=== PATIENT | female | born 1985 | race Caucasian/White ===

== ENCOUNTER 2016-07-14 11:38 | Emergency (ER) | payer MEDICARE, MEDICAID ==
[~2016-07-14] VITALS: Ht 167.6 cm; Wt 141.5 kg
[2016-07-14 12:13] VITALS: BP 145/105; PULSE 93; RESP 20; TEMP 98.6
[2016-07-14] MEDS ORDERED: CYCL5TAB PO (12:57)
[2016-07-14] MEDS ORDERED: CYAN1KIT2 IM (12:57)
[2016-07-14] MEDS ORDERED: LEVO.1 PO (12:57)
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
[2016-07-14] MEDS ORDERED: ORPHENADRINE INJ 60 MG/2 ML AMP IM ONE (14:00)
[2016-07-14] MEDS ORDERED: ACETAMINOPHEN 325 MG TAB PO ONE (14:00)
[2016-07-14] MEDS ORDERED: CYCL1TAB29 PO (14:08)
[2016-07-14 14:30] VITALS: BP 133/79; PULSE 84; RESP 18; O2SAT 99
--- NOTE | 2016-07-14 14:34 | RADHPO ---
EXAM DATE/TIME: 07/14/2016 14:05 [facility] COMPARISON: No previous studies available for comparison. INDICATIONS : Upper back pain . MEDICAL HISTORY : None. SURGICAL HISTORY : None. ENCOUNTER: Initial ACUITY: 3 days PAIN SCORE: 10/10 LOCATION: middle thoracic spine FINDINGS: There is normal alignment of the thoracic vertebral bodies. Vertebral body height is maintained. No evidence of fracture or subluxation. Pedicles are intact at all levels. The paravertebral reflecti ons are not thickened. CONCLUSION: No acute disease. Joshua Iyer MD on July 14, 2016 at 14:33 Board Certified Radiologist. This report was verified electronically.
[2016-07-23] MEDS ORDERED: ESZO3TAB4 PO (14:38)
[2016-07-23] MEDS ORDERED: TRAZ50TA12 PO (14:40)
[2016-08-20] MEDS ORDERED: LEVA500T PO (14:27)
[2016-08-20] MEDS ORDERED: ZOFR4TAB PO (14:27)
[2016-08-20] MEDS ORDERED: PERC5TAB12 PO (14:28)
[2016-09-17] MEDS ORDERED: ZOFR4TAB PO (14:39)
[2016-09-17] MEDS ORDERED: PERC5TAB12 PO (14:39)
[2016-11-19] MEDS ORDERED: ALLO300T2 PO (15:05)
[2016-11-19] MEDS ORDERED: PERC10TA27 PO (15:09)
[2016-11-19] MEDS ORDERED: ZOFR4SOL PO (15:09)
== END 2016-07-14 15:10 | disposition home or self-care (01) ==
LOC: PHEFT 11:38
DX: S23.3XXA Sprain of ligaments of thoracic spine, initial encounter (principal); X58.XXXA Exposure to other specified factors, initial encounter
CPT/HCPCS: 72072; 84703; 96372; 99283; J2360

== ENCOUNTER → 2016-08-29 | Outpatient (CLI) | payer MEDICARE, MEDICAID ==
[~2016-08-29] MED LIST: ALLO300T2 PO; BUSP5TAB PO; CYAN1KIT2 IM; CYCL1TAB29 PO; CYCL5TAB PO; DOXY1CAP91; LEVA500T PO; LEVO.1 PO; PERC10TA27 PO; PERC5TAB12 PO; PROC10TA PO; PROM25TA5 PO; TAMS5CAP PO; TRAZ50TA12 PO; ZOFR4SOL PO; ZOFR4TAB PO; ZOFR4TAB3 SL
--- NOTE | 2016-08-29 15:18 | RADRPT ---
EXAM DATE/TIME: 08/29/2016 14:07 [facility] COMPARISON: No previous studies available for comparison. INDICATIONS : History of right side ureteral reflux and nephrolithiasis. DOSE: 1.0 mCi Tc99m Sulfur Colloid via urinary catheter VOLUME: A total of 750 cc of saline was instilled into the bladder before onset of voiding. MEDICAL HISTORY : Crohn's disease. Hypothyroid SURGICAL HISTORY : Appendectomy. Cholecystectomy. Lithiotripsy. ENCOUNTER: Initial ACUITY: 1 day PAIN SCALE: 6/10 LOCATION: Right lower quadrant TECHNIQUE: The urinary bladder was catheterized. Radiotracer was placed into the bladder through the catheter. Dynamic continuous rapid frame rate acquisition was performed during instillation of saline into the bladder and during voiding. A static posterior planar image of the kidneys was performed postvoid. FINDINGS: REFLUX: No episodes of vesicoureteral reflux are seen on either side during filling or emptying of the bladde r. POST VOID: No activity is seen in the region of the kidneys on the postvoid image. CONCLUSION: 1. Negative examination. Ilya Sorenson MD on August 29, 2016 at 15:15 Board Certified Radiologist. This report was verified electronically.
== END ==
LOC: HRAD 13:11
PROVIDERS: ATTEND Urology
DX: N13.70 Vesicoureteral-reflux, unspecified (principal)
CPT/HCPCS: 78740; A9541

== ENCOUNTER 2016-11-02 21:15 | Emergency (ER) | payer MEDICARE, MEDICAID ==
[~2016-11-02] VITALS: Ht 167.6 cm; Wt 138.4 kg
[~2016-11-02 21:15] MED LIST changes: -ALLO300T2 PO; -BUSP5TAB PO; -DOXY1CAP91; -LEVA500T PO; -PERC10TA27 PO; -PROC10TA PO; -PROM25TA5 PO; -TAMS5CAP PO; -ZOFR4SOL PO; -ZOFR4TAB3 SL
[2016-11-02 21:48] VITALS: BP 148/106; PULSE 96; RESP 12; TEMP 98.6
--- NOTE | 2016-11-02 22:07 | PD ---
HPI Chief Complaint: Flank/Kidney Pain Time Seen by Provider: 21:58 Travel History International Travel<30 days: No Contact w/Intl Traveler<30days: No Traveled to known affect area: No History of Present Illness HPI This 30-year-old female is complaining of right flank and right-sided abdominal pain. She has a history of kidney stones and feels that this is probably a kidney stone. She's been having pain for several days but seems to be getting worse. She has had some nausea. She has a history of medullary sponge kidney and gets frequent kidney stones. She has incomplete bladder emptying and self catheter himself. He has history of UTIs. PFSH Past Medical History Autoimmune Disease: Yes (Celiac, TMJ) Kidney Stones: Yes Thyroid Disease: Yes (Hypo-) Past Surgical History Appendectomy: Yes Cholecystectomy: Yes Oral Surgery: Yes ([place] teeth ) Social History Alcohol Use: Yes (Occ.) Tobacco Use: No Substance Use: No Allergies-Medications (Allergen,Severity, Reaction): Coded Allergies: Ambien (Verified Allergy, Unknown, VOMITING, 09/17/16) Imitrex (Verified Allergy, Unknown, RESP, 09/17/16) Lortab (Verified Allergy, Unknown, HIVES, 09/17/16) Sulfa (Verified Allergy, Unknown, VOMITING, 09/17/16) Reported Meds & Prescriptions Reported Meds & Active Scripts Active Percocet (Oxycodone-Acetaminophen) 5-325 mg Tab 1-2 Tab PO Q6H PRN Zofran (Ondansetron HCl) 4 Mg Tab 4 Mg PO Q6HR PRN Flexeril (Cyclobenzaprine HCl) 10 Mg Tab 10 Mg PO TID PRN Reported Trazodone (Trazodone HCl) 50 Mg Tab 50 Mg PO HS B-12 Compliance Inj (Cyanocobalamin) 1,000 Mcg/Ml Kit 1,000 Mcg IM Q30D Synthroid (Levothyroxine Sodium) 100 Mcg Tab 100 Mcg PO TID Review of Systems General / Constitutional: No: Fever, Chills Eyes: No: Diploplia HENT: No: Headaches Cardiovascular: No: Chest Pain or Discomfort Respiratory: No: Cough, Shortness of Breath Gastrointestinal: Positive: Nausea Genitourinary: Positive: Hematuria, Flank Pain Skin: No Rash, No Itching Neurologic: No: Weakness, Dizziness Endocrine: No: Heat Intolerance Hematologic/Lymphatic: No: Easy Bruising Physical Exam Narrative GENERAL: Well-developed female SKIN: Focused skin assessment warm/dry. HEAD: Atraumatic. Normocephalic. EYES: Pupils equal and round. No scleral icterus. No injection or drainage. ENT: No nasal bleeding or discharge. Mucous membranes pink and moist. NECK: Trachea midline. No JVD. CARDIOVASCULAR: Regular rate and rhythm. No murmur appreciated. RESPIRATORY: No accessory muscle use. Clear to auscultation. Breath sounds equal bilaterally. GASTROINTESTINAL: Abdomen soft, non-tender, nondistended. Hepatic and splenic margins not palpable. There is right CVA tenderness MUSCULOSKELETAL: No obvious deformities. No clubbing. No cyanosis. No edema. NEUROLOGICAL: Awake and alert. No obvious cranial nerve deficits. Motor grossly within normal limits. Normal speech. PSYCHIATRIC: Appropriate mood and affect; insight and judgment normal. Data Data Last Documented VS Vital Signs Date Time Temp Pulse Resp B/P Pulse Ox O2 Delivery O2 Flow Rate FiO2 11/02/16 23:00 16 11/02/16 21:59 96 11/02/16 21:48 98.6 148/106 Orders Complete Blood Count With Diff (11/02/16 22:03) Basic Metabolic Panel (Bmp) (11/02/16 22:03) Urinalysis - C+S If Indicated (11/02/16 22:03) Sodium Chlor 0.9% 1000 Ml Inj (Ns 1000 M (11/02/16 22:15) Ondansetron Inj (Zofran Inj) (11/02/16 22:15) Ketorolac Inj (Toradol Inj) (11/02/16 22:15) Hydromorphone Pf Inj (Dilaudid Pf Inj) (11/02/16 22:15) Prochlorperazine Inj (Compazine Inj) (11/02/16 23:00) Diphenhydramine Inj (Benadryl Inj) (11/02/16 23:00) Hydromorphone Pf Inj (Dilaudid Pf Inj) (11/02/16 23:00) Labs Laboratory Tests Test 11/02/16 22:05 White Blood Count 7.4 TH/MM3 Red Blood Count 4.82 MIL/MM3 Hemoglobin 13.7 GM/DL Hematocrit 41.5 % Mean Corpuscular Volume 86.2 FL Mean Corpuscular Hemoglobin 28.4 PG Mean Corpuscular Hemoglobin 32.9 % Concent Red Cell Distribution Width 13.4 % Platelet Count 201 TH/MM3 Mean Platelet Volume 9.4 FL Neutrophils (%) (Auto) 62.5 % Lymphocytes (%) (Auto) 29.5 % Monocytes (%) (Auto) 5.7 % Eosinophils (%) (Auto) 1.8 % Basophils (%) (Auto) 0.5 % Neutrophils # (Auto) 4.7 TH/MM3 Lymphocytes # (Auto) 2.2 TH/MM3 Monocytes # (Auto) 0.4 TH/MM3 Eosinophils # (Auto) 0.1 TH/MM3 Basophils # (Auto) 0.0 TH/MM3 CBC Comment DIFF FINAL Differential Comment Urine Color YELLOW Urine Turbidity SLIGHT Urine pH 5.5 Urine Specific [place] 1.028 Urine Protein TRACE mg/dL Urine Glucose (UA) NEG mg/dL Urine Ketones TRACE mg/dL Urine Occult Blood LARGE Urine Nitrite NEG Urine Bilirubin NEG Urine Leukocyte Esterase NEG Urine RBC INNUM /hpf Urine Squamous Epithelial 0-5 /hpf Cells Urine Bacteria FEW /hpf Urine Mucus MOD /lpf Microscopic Urinalysis Comment CULT NOT INDICATED Sodium Level 141 MEQ/L Potassium Level 3.9 MEQ/L Chloride Level 107 MEQ/L Carbon Dioxide Level 25.9 MEQ/L Anion Gap 8 MEQ/L Blood Urea Nitrogen 8 MG/DL Creatinine 0.85 MG/DL Estimat Glomerular Filtration 80 ML/MIN Rate Random Glucose 100 MG/DL Calcium Level 8.8 MG/DL MDM Medical Decision Making Medical Screen Exam Complete: Yes Emergency Medical Condition: Yes Medical Record Reviewed: Yes Differential Diagnosis Urine does show hematuria. This presentation is consistent with renal colic. She had a CT scan done 2 weeks ago and has had multiple scans in the past. I don't think she needs imaging now. He has been given Dilaudid and Compazine with improvement. sHe is stable for discharge Narrative Course Patient has been given IV fluids. She was given Zofran and Dilaudid and had persistent pain and nausea so that Dilaudid has been repeated she is also given Compazine. This is helped. Diagnosis Primary Impression: Renal colic on right side Scripts Prochlorperazine Maleate 10 Mg Tab10 Mg PO Q6H PRN (NAUSEA OR VOMITING) #20 TAB Ref 0 Prov:Mateusz Nolasco MD 11/02/16 Oxycodone-Acetaminophen (Percocet)10-325 mg Tab1 Tab PO Q4H PRN (PAIN) #30 TAB Ref 0 Prov:Mateusz Nolasco MD 11/02/16 Disposition: 01 DISCHARGE HOME Condition: Stable Mateusz Nolasco MD Nov 02, 2016 22:07
[2016-11-02] MEDS ORDERED: SODIUM CHLOR 0.9% 1000 ML INJ 1,000 ML IV SCH (22:15)
[2016-11-02] MEDS ORDERED: HYDROmorphone HCL PF 1 MG/ML VIAL IV PUSH ONE ×2 (22:15→23:00)
[2016-11-02] MEDS ORDERED: ONDANSETRON HCL 4 MG/2 ML VIAL IV PUSH ONE (22:15)
[2016-11-02] MEDS ORDERED: KETOROLAC TROMETHAMINE 30 MG/ML (IVP) VIAL IV PUSH ONE (22:15)
[2016-11-02 22:19] LABS: AUTOMATED NEUTROPHIL # 4.7 TH/MM3 (1.8-7.7); BASOPHIL % 0.5 % (0.0-2.0); EOSINOPHIL # 0.1 TH/MM3 (0-0.4); EOSINOPHIL % 1.8 % (0.0-4.0); HEMATOCRIT 41.5 % (35.0-46.0); HEMO FLAGS DIFF FINAL; LYMPH % 29.5 % (9.0-44.0); LYMPHOCYTE # 2.2 TH/MM3 (1.0-4.8); MEAN CELL VOLUME 86.2 FL (80.0-100.0); MEAN CORPUSCULAR HEMOGLOBIN 28.4 PG (27.0-34.0); MEAN CORPUSCULAR HGB CONC 32.9 % (32.0-36.0); MONO % 5.7 % (0.0-8.0); NEUT % 62.5 % (16.0-70.0); PLATELET COUNT 201 TH/MM3 (150-450); RED BLOOD COUNT 4.82 MIL/MM3 (4.00-5.30); RED CELL DISTRIBUTION WIDTH 13.4 % (11.6-17.2); WHITE BLOOD COUNT 7.4 TH/MM3 (4.0-11.0)
[2016-11-02 22:20] VITALS: BP 137/78; PULSE 78; RESP 16; O2SAT 98
[2016-11-02 22:25] LABS: BLOOD, URINE LARGE (NEG); GLUCOSE,URINE NEG (NEG); KETONE, URINE TRACE mg/dL (NEG); NITRITE,URINE NEG (NEG); PH, URINE 5.5 (5.0-8.5)
[2016-11-02 22:31] LABS: POTASSIUM 3.9 MEQ/L (3.5-5.1)
[2016-11-02 22:34] LABS: BICARBONATE 25.9 MEQ/L (21.0-32.0)
[2016-11-02 22:37] LABS: URINE COLOR YELLOW (YELLW/STRAW)
[2016-11-02 22:38] LABS: BACTERIA, URINE FEW /hpf; MUCUS URINE MOD /lpf (OCC); RBC, URINE INNUM /hpf (0-3); SQUAMOUS EPITHELIAL CELL URINE 0-5 /hpf (0-5)
[2016-11-02 22:39] LABS: COMMENT (UR) CULT NOT INDICATED; CULTURE IF INDICATED CULT NOT INDICATED
[2016-11-02] MEDS ORDERED: PROCHLORPERAZINE INJ 10 MG/2 ML VIAL IV PUSH ONE (23:00)
[2016-11-02] MEDS ORDERED: diphenhydrAMINE HCL 50 MG/ML VIAL IV PUSH ONE (23:00)
[2016-11-02 23:05] VITALS: BP 121/76; PULSE 70; RESP 14; O2SAT 96
[2016-11-02 23:35] VITALS: BP 115/71; PULSE 68; RESP 14; O2SAT 98
[2016-11-02] MEDS ORDERED: PERC10TA27 PO (23:36)
[2016-11-02] MEDS ORDERED: PROC10TA PO (23:38)
[2016-11-02 23:59] VITALS: RESP 16
[2016-11-19] MEDS ORDERED: ALLO300T2 PO (15:05)
[2016-11-19] MEDS ORDERED: ZOFR4SOL PO (15:09)
[2016-11-19] MEDS ORDERED: PERC10TA27 PO (15:09)
== END 2016-11-03 00:03 | disposition home or self-care (01) ==
LOC: PHED 21:15
DX: N23 Unspecified renal colic (principal); R31.9 Hematuria, unspecified; Z87.442 Personal history of urinary calculi; R11.0 Nausea; Z87.440 Personal history of urinary (tract) infections; E03.9 Hypothyroidism, unspecified; K90.0 Celiac disease
CPT/HCPCS: 80048; 81001; 85025; 96361; 96374; 96375; 96376; 99284; J0780; J1170; J1200; J1885; J2405; J7030

== ENCOUNTER 2016-11-08 21:52 | Emergency (ER) | payer MEDICARE, MEDICAID ==
[~2016-11-08] VITALS: Ht 167.6 cm; Wt 140.0 kg
[~2016-11-08 21:52] MED LIST changes: -CYCL5TAB PO; +PERC10TA27 PO; +PROC10TA PO
[2016-11-08 21:59] VITALS: BP 148/91; PULSE 79; RESP 18; RESP 20; TEMP 98.3; O2SAT 97
[2016-11-08] MEDS ORDERED: SODIUM CHLOR 0.9% 1000 ML INJ 1,000 ML IV SCH (22:16)
[2016-11-08] MEDS ORDERED: PROC10TA PO (22:26)
[2016-11-08] MEDS ORDERED: TAMS5CAP PO (22:26)
[2016-11-08] MEDS ORDERED: DOXY1CAP91 (22:26)
[2016-11-08] MEDS ORDERED: HYDROmorphone HCL PF 1 MG/ML VIAL IVS ONE (22:30)
[2016-11-08] MEDS ORDERED: ONDANSETRON HCL 4 MG/2 ML VIAL IVP ONE (22:30)
--- NOTE | 2016-11-08 22:30 | PD ---
HPI Chief Complaint: Flank/Kidney Pain Time Seen by Provider: 22:03 Travel History International Travel<30 days: No Contact w/Intl Traveler<30days: No Traveled to known affect area: No History of Present Illness HPI 30-year-old female complains of right flank pain. Patient states the pain started 2 weeks ago. Patient has history of recurrent right flank pain has been seen by urologist locally, Dr. Valentino. Patient has been taking Percocet at home without much relief of the pain. Patient states that she has limited nausea vomiting also. Patient states the pain cramping pain and sharp pain started the right flank area with radiation to right side abdomen. Patient denies any fever chills. Patient has history of kidney stone, incomplete bladder emptying, medullary sponge kidney. Patient self catheter herself. Patient also has history of von Willebrand disease, celiac disease, Nallely's thyroiditis, anemia secondary to B12 deficiency, menorrhagia. She was seen by Dr. Valentino recently and had a VCUR which did not show any reflux. 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 Patient was referred to [facility] for follow-up with her persistent symptoms of right flank pain. PFSH Past Medical History Autoimmune Disease: Yes (Celiac, TMJ) Diminished Hearing: No Genitourinary: Yes (KIDNEY REFLUX, MULTIPLE STONES) Kidney Stones: Yes Thyroid Disease: Yes (Hypo-) ?: Not LMP: IUD/8 months Past Surgical History Appendectomy: Yes Cholecystectomy: Yes Oral Surgery: Yes ([place] teeth ) Social History Alcohol Use: Yes (Occ.) Tobacco Use: No Substance Use: No Allergies-Medications (Allergen,Severity, Reaction): Coded Allergies: Ambien (Verified Allergy, Unknown, VOMITING, 11/08/16) Imitrex (Verified Allergy, Unknown, RESP, 11/08/16) Lortab (Verified Allergy, Unknown, HIVES, 11/08/16) Sulfa (Verified Allergy, Unknown, VOMITING, 11/08/16) Reported Meds & Prescriptions Reported Meds & Active Scripts Active Phenergan (Promethazine HCl) 25 Mg Tab 25 Mg PO Q6H PRN Zofran Odt (Ondansetron Odt) 4 Mg Tab 4 Mg SL Q6HR PRN Flexeril (Cyclobenzaprine HCl) 10 Mg Tab 10 Mg PO TID Percocet (Oxycodone-Acetaminophen) 10-325 mg Tab 1 Tab PO Q4H PRN Flexeril (Cyclobenzaprine HCl) 10 Mg Tab 10 Mg PO TID PRN Reported Doxycycline (Doxycycline (Monohydrate)) 100 Mg Cap BID Flomax (Tamsulosin HCl) 0.4 Mg Cap 0.4 Mg PO HS Flomax (Tamsulosin HCl) 0.4 Mg Cap 0.4 Mg PO HS Prochlorperazine Maleate 10 Mg Tab 10 Mg PO Q4H PRN B-12 Compliance Inj (Cyanocobalamin) 1,000 Mcg/Ml Kit 1,000 Mcg IM Q30D Synthroid (Levothyroxine Sodium) 100 Mcg Tab 100 Mcg PO TID Review of Systems General / Constitutional: No: Fever Eyes: No: Visual changes HENT: No: Headaches Cardiovascular: No: Chest Pain or Discomfort Respiratory: No: Shortness of Breath Gastrointestinal: No: Abdominal Pain Genitourinary: No: Dysuria Musculoskeletal: No: Pain Skin: No Rash Neurologic: No: Weakness Psychiatric: No: Depression Endocrine: No: Polydipsia Hematologic/Lymphatic: No: Easy Bruising Physical Exam Narrative GENERAL: Well-nourished, well-developed patient. SKIN: Focused skin assessment warm/dry. HEAD: Normocephalic. EYES: No scleral icterus. No injection or drainage. NECK: Supple, trachea midline. No JVD or lymphadenopathy. CARDIOVASCULAR: Regular rate and rhythm without murmurs, gallops, or rubs. RESPIRATORY: Breath sounds equal bilaterally. No accessory muscle use. GASTROINTESTINAL: Abdomen soft, nondistended. Patient has mild tenderness on palpation right flank area. No rebound tenderness. No mass. MUSCULOSKELETAL: No cyanosis, or edema. BACK: Patient has moderate tenderness on palpation right flank area. Neurologic exam normal. Data Data Last Documented VS Vital Signs Date Time Temp Pulse Resp B/P Pulse Ox O2 Delivery O2 Flow Rate FiO2 11/08/16 23:08 78 16 140/93 98 Room Air 11/08/16 21:59 98.3 Orders Complete Blood Count With Diff (11/08/16 22:16) Comprehensive Metabolic Panel (11/08/16 22:16) Prothrombin Time / Inr (Pt) (11/08/16 22:16) Act Partial Throm Time (Ptt) (11/08/16 22:16) Urinalysis - C+S If Indicated (11/08/16 22:16) Ct Abd/Pel W/O Iv Contrast (11/08/16 22:16) Iv Access Insert/Monitor (11/08/16 22:16) Ecg Monitoring (11/08/16 22:16) Oximetry (11/08/16 22:16) Ondansetron Inj (Zofran Inj) (11/08/16 22:30) Sodium Chlor 0.9% 1000 Ml Inj (Ns 1000 M (11/08/16 22:16) Hydromorphone Pf Inj (Dilaudid Pf Inj) (11/08/16 22:30) Metoclopramide Inj (Reglan Inj) (11/08/16 23:30) Diphenhydramine Inj (Benadryl Inj) (11/08/16 23:30) Labs Laboratory Tests Test 11/08/16 22:45 White Blood Count 5.6 TH/MM3 Red Blood Count 4.54 MIL/MM3 Hemoglobin 13.3 GM/DL Hematocrit 39.4 % Mean Corpuscular Volume 86.8 FL Mean Corpuscular Hemoglobin 29.3 PG Mean Corpuscular Hemoglobin 33.7 % Concent Red Cell Distribution Width 12.9 % Platelet Count 179 TH/MM3 Mean Platelet Volume 9.7 FL Neutrophils (%) (Auto) 63.4 % Lymphocytes (%) (Auto) 29.3 % Monocytes (%) (Auto) 4.6 % Eosinophils (%) (Auto) 2.2 % Basophils (%) (Auto) 0.5 % Neutrophils # (Auto) 3.5 TH/MM3 Lymphocytes # (Auto) 1.7 TH/MM3 Monocytes # (Auto) 0.3 TH/MM3 Eosinophils # (Auto) 0.1 TH/MM3 Basophils # (Auto) 0.0 TH/MM3 CBC Comment DIFF FINAL Differential Comment Prothrombin Time 10.2 SEC Prothromb Time International 0.9 RATIO Ratio Activated Partial 28.4 SEC Thromboplast Time Urine Color RED Urine Turbidity CLOUDY Urine pH 6.0 Urine Specific [place] 1.017 Urine Protein TRACE mg/dL Urine Glucose (UA) NEG mg/dL Urine Ketones NEG mg/dL Urine Occult Blood LARGE Urine Nitrite NEG Urine Bilirubin NEG Urine Leukocyte Esterase NEG Urine RBC INNUM /hpf Urine WBC 3-5 /hpf Urine Squamous Epithelial 0-5 /hpf Cells Microscopic Urinalysis Comment CULT NOT INDICATED Sodium Level 142 MEQ/L Potassium Level 4.1 MEQ/L Chloride Level 105 MEQ/L Carbon Dioxide Level 25.9 MEQ/L Anion Gap 11 MEQ/L Blood Urea Nitrogen 6 MG/DL Creatinine 0.98 MG/DL Estimat Glomerular Filtration 68 ML/MIN Rate Random Glucose 100 MG/DL Calcium Level 8.5 MG/DL Total Bilirubin 0.2 MG/DL Aspartate Amino Transf 20 U/L (AST/SGOT) Alanine Aminotransferase 18 U/L (ALT/SGPT) Alkaline Phosphatase 60 U/L Total Protein 6.9 GM/DL Albumin 3.5 GM/DL [facility] Medical Decision Making Medical Screen Exam Complete: Yes Emergency Medical Condition: Yes Medical Record Reviewed: Yes Interpretation(s) Last Impressions Abdomen/Pelvis CT 11/08/162215 Signed Impressions: Service Date/Time: Tuesday, November 08, 2016 22:42 - CONCLUSION: Several 3-5 mm nonobstructing stones of the right kidney. Wally Michel MD 23:46 PM. CBC within normal limit. CMP within normal limit. UA positive for RBC. Differential Diagnosis Differential diagnosis including acute and chronic flank pain, nephrolithiasis, pyelonephritis, colitis. Narrative Course 30-year-old female with persistent right flank pain. History of kidney stone and medullary sponge kidney and possible neurogenic bladder. Normal saline solution 125 cc an hour. Dilaudid 1 mg IV. Zofran 4 mg IV. Reglan 10 mg IV. Benadryl [address] scan abdomen and pelvis showed nonobstructive stones right kidney. Diagnosis Primary Impression: Nephrolithiasis Patient Instructions: General Instructions Additional Instructions: Flexeril as needed for pain. Follow-up with urologist and personal physician. Return if worse. Med/Other Pt SpecificInfo: Prescription(s) given Scripts Promethazine (Phenergan)25 Mg Tab25 Mg PO Q6H PRN (Nausea/Vomiting) #20 TAB Ref 0 Prov:William Zuniga MD 11/08/16 Ondansetron Odt (Zofran Odt)4 Mg Tab4 Mg SL Q6HR PRN (Nausea/Vomiting) #20 TAB Ref 0 Prov:William Zuniga MD 11/08/16 Cyclobenzaprine (Flexeril)10 Mg Tab10 Mg PO TID #60 TAB Ref 0 Prov:William Zuniga MD 11/08/16 Disposition: 01 DISCHARGE HOME Condition: Stable William Zuniga MD Nov 08, 2016 22:30
[2016-11-08 22:35] VITALS: BP 148/78; PULSE 73; RESP 18; O2SAT 96
--- NOTE | 2016-11-08 23:07 | RADHPO ---
EXAM DATE/TIME: 11/08/2016 22:42 [facility] COMPARISON: No previous studies available for comparison. INDICATIONS : Right sided flank pain for two weeks. ORAL CONTRAST: No oral contrast ingested. RADIATION DOSE: 28.12 CTDIvol (mGy) MEDICAL HISTORY : Renal calculi. SURGICAL HISTORY : Appendectomy. Cholecystectomy.Lithotripsy. ENCOUNTER: Initial ACUITY: 2 weeks PAIN SCALE: 7/10 LOCATION: Right flank TECHNIQUE: Volumetric scanning of the abdomen and pelvis was performed. Using automated exposure control and ad justment of the mA and/or kV according to patient size, radiation dose was kept as low as reasonably achievable to obtain optimal diagnostic quality images. FINDINGS: There are nonobstructing stones of the right kidney, 3 mm of the upper pole, 3 mm of the mid zone and 5 and 4 mm of the lower pole. No left renal calculus. No ureteral stone on either side. No hydroneph rosis or hydroureter. Noncontrast appearance of the liver, spleen, pancreas and adrenal glands within normal limits. No obs truction or inflammatory changes are seen of the gastrointestinal tract. Patient has had previous cholecystectomy and appendectomy. There is a dropped cholecystectomy clip in the right posterior subdiaphragmatic space. No free fluid. No lymphadenopathy. No free air. Visualized lung bases are clear. Visualized osseous s tructures are intact and without focal acute abnormality. CONCLUSION: Several 3-5 mm nonobstructing stones of the right kidney. Wally Michel MD on November 08, 2016 at 23:01 Board Certified Radiologist. This report was verified electronically.
[2016-11-08 23:08] VITALS: BP 140/93; PULSE 78; RESP 16; O2SAT 98
[2016-11-08] MEDS ORDERED: CYCL1TAB29 PO (23:13)
[2016-11-08] MEDS ORDERED: PROM25TA5 PO (23:13)
[2016-11-08] MEDS ORDERED: ZOFR4TAB3 SL (23:13)
[2016-11-08 23:14] LABS: BLOOD, URINE LARGE (NEG); GLUCOSE,URINE NEG (NEG); KETONE, URINE NEG (NEG); NITRITE,URINE NEG (NEG)
[2016-11-08 23:23] LABS: AUTOMATED NEUTROPHIL # 3.5 TH/MM3 (1.8-7.7); BASOPHIL % 0.5 % (0.0-2.0); CHLORIDE 105 MEQ/L (98-107); EOSINOPHIL # 0.1 TH/MM3 (0-0.4); EOSINOPHIL % 2.2 % (0.0-4.0); HEMATOCRIT 39.4 % (35.0-46.0); HEMO FLAGS DIFF FINAL; LYMPH % 29.3 % (9.0-44.0); LYMPHOCYTE # 1.7 TH/MM3 (1.0-4.8); MEAN CELL VOLUME 86.8 FL (80.0-100.0); MEAN CORPUSCULAR HEMOGLOBIN 29.3 PG (27.0-34.0); MEAN CORPUSCULAR HGB CONC 33.7 % (32.0-36.0); MONO % 4.6 % (0.0-8.0); NEUT % 63.4 % (16.0-70.0); PLATELET COUNT 179 TH/MM3 (150-450); RED BLOOD COUNT 4.54 MIL/MM3 (4.00-5.30); RED CELL DISTRIBUTION WIDTH 12.9 % (11.6-17.2); SODIUM (NA) 142 MEQ/L (136-145); URINE COLOR RED (YELLW/STRAW); WHITE BLOOD COUNT 5.6 TH/MM3 (4.0-11.0)
[2016-11-08 23:26] LABS: COMMENT (UR) CULT NOT INDICATED; CULTURE IF INDICATED CULT NOT INDICATED; RBC, URINE INNUM /hpf (0-3); SQUAMOUS EPITHELIAL CELL URINE 0-5 /hpf (0-5)
[2016-11-08 23:27] LABS: ANION GAP 11 MEQ/L (5-15); BICARBONATE 25.9 MEQ/L (21.0-32.0); BLOOD UREA NITROGEN 6 MG/DL (7-18)
[2016-11-08 23:28] LABS: APTT (PATIENT) 28.4 SEC (24.3-30.1); INTERNATIONAL NORMALIZED RATIO 0.9 RATIO; PROTHROMBIN TIME - PATIENT 10.2 SEC (9.8-11.6)
[2016-11-08 23:30] LABS: ALT (GPT) 18 U/L (10-53); AST (GOT) 20 U/L (15-37); GLOMERULAR FILTRATION RATE 68 ML/MIN (>89)
[2016-11-08] MEDS ORDERED: diphenhydrAMINE HCL 50 MG/ML VIAL IV PUSH ONE (23:30)
[2016-11-08] MEDS ORDERED: METOCLOPRAMIDE HCL 10 MG/2 ML VIAL IV PUSH ONE (23:30)
[2016-11-08 23:31] LABS: TOTAL BILIRUBIN ADULT 0.2 MG/DL (0.2-1.0)
[2016-11-08 23:33] LABS: ALKALINE PHOSPHATASE 60 U/L (45-117); POTASSIUM 4.1 MEQ/L (3.5-5.1)
[2016-11-19] MEDS ORDERED: ALLO300T2 PO (15:05)
[2016-11-19] MEDS ORDERED: ZOFR4SOL PO (15:09)
[2016-11-19] MEDS ORDERED: PERC10TA27 PO (15:09)
== END 2016-11-09 00:35 | disposition home or self-care (01) ==
LOC: PHED 21:52
DX: N20.0 Calculus of kidney (principal)
CPT/HCPCS: 74176; 80053; 81001; 85025; 85610; 85730; 96361; 96374; 96375; 99284; J1170; J1200; J2405; J2765; J7030

== ENCOUNTER 2017-01-09 14:01 | Emergency (ER) | payer MEDICARE, MEDICAID ==
[~2017-01-09] VITALS: Ht 167.6 cm; Wt 138.8 kg
[~2017-01-09 14:01] MED LIST changes: +ALLO300T2 PO; +DOXY1CAP91; -PERC5TAB12 PO; -PROC10TA PO; +PROM25TA5 PO; -TRAZ50TA12 PO; +ZOFR4SOL PO; -ZOFR4TAB PO; +ZOFR4TAB3 SL
[2017-01-09 14:04] VITALS: BP 157/96; PULSE 94; RESP 16; TEMP 98.2; O2SAT 100
[2017-01-09] MEDS ORDERED: BUSP5TAB PO (14:15)
--- NOTE | 2017-01-09 14:23 | PD ---
HPI Chief Complaint: Headache Time Seen by Provider: 14:12 Travel History International Travel<30 days: No Contact w/Intl Traveler<30days: No Traveled to known affect area: No History of Present Illness HPI 31yo F with PMH of migraine, von willebrands, celiac disease, hypothyroidism presents to the ED with c/o right sided headache for 5 days. States it feels like her usual migraine headache. Pain is throbbing, constant and associated with photophobia, phonophobia and nausea. States usually gets migraine headache once or twice a month and illness and storm can trigger it. Pt just finished antibiotics for UTI. Denies any fever, trauma, chest pain, sob, vomiting, abdominal pain, focal weakness or numbness. PFSH Past Medical History Autoimmune Disease: Yes (Celiac, TMJ) Depression: Yes Diminished Hearing: No Genitourinary: Yes (KIDNEY REFLUX, MULTIPLE STONES; incomplete bladder emptying ) Headaches: Yes (migraomes) Kidney Stones: Yes Thyroid Disease: Yes (Hypo-) Influenza Vaccination: No ?: Not LMP: IUD Past Surgical History Appendectomy: Yes Cholecystectomy: Yes Oral Surgery: Yes ([place] teeth ) Social History Alcohol Use: Yes (Occ.) Tobacco Use: No Substance Use: No Allergies-Medications (Allergen,Severity, Reaction): Coded Allergies: Ambien (Verified Allergy, Unknown, VOMITING, 01/09/17) Imitrex (Verified Allergy, Unknown, RESP, 01/09/17) Lortab (Verified Allergy, Unknown, HIVES, 01/09/17) Sulfa (Verified Allergy, Unknown, VOMITING, 01/09/17) Reported Meds & Prescriptions Reported Meds & Active Scripts Active Zofran Liq (Ondansetron HCl) 4 Mg/5 Ml Soln 4 Mg PO Q6HR Allopurinol 300 Mg Tab 300 Mg PO DAILY Flexeril (Cyclobenzaprine HCl) 10 Mg Tab 10 Mg PO TID PRN Reported Buspirone (Buspirone HCl) 5 Mg Tab 5 Mg PO BID B-12 Compliance Inj (Cyanocobalamin) 1,000 Mcg/Ml Kit 1,000 Mcg IM Q30D Synthroid (Levothyroxine Sodium) 100 Mcg Tab 100 Mcg PO TID Review of Systems Except as stated in HPI: all other systems reviewed are Neg Physical Exam Narrative GENERAL: 31yo F in mild distress. SKIN: Focused skin assessment warm/dry. HEAD: Atraumatic. Normocephalic. EYES: Pupils equal and round at 4mm bilaterally. EOMI. No scleral icterus. No injection or drainage. ENT: No nasal bleeding or discharge. Mucous membranes pink and moist. NECK: No nuchal rigidity. CARDIOVASCULAR: Regular rate and rhythm. No murmur appreciated. RESPIRATORY: No accessory muscle use. Clear to auscultation. Breath sounds equal bilaterally. GASTROINTESTINAL: Abdomen soft, non-tender, nondistended. No rebound tenderness or guarding. MUSCULOSKELETAL: No obvious deformities. No clubbing. No cyanosis. No edema. NEUROLOGICAL: Awake and alert. No obvious cranial nerve deficits. Motor grossly within normal limits. Normal speech. PSYCHIATRIC: Appropriate mood and affect; insight and judgment normal. Data Data Last Documented VS Vital Signs Date Time Temp Pulse Resp B/P Pulse Ox O2 Delivery O2 Flow Rate FiO2 01/09/17 15:09 78 16 140/78 96 Room Air 01/09/17 14:04 98.2 Orders Ketorolac Inj (Toradol Inj) (01/09/17 14:30) Diphenhydramine Inj (Benadryl Inj) (01/09/17 14:30) Prochlorperazine Inj (Compazine Inj) (01/09/17 14:30) MDM Medical Decision Making Medical Screen Exam Complete: Yes Emergency Medical Condition: Yes Differential Diagnosis Migraine headache vs. sinus headache vs. tension headache Narrative Course 31yo F with history of migraine headaches here with what sounds like her usual headache. No red flags. No focal neurologic deficits on exam. Pt given compazine, toradol and diphenhydramine. Pt reevaluated at bedside and feels better. Headache resolved and has appointment to follow up with her neurologist. Return precautions given. Diagnosis Primary Impression: Migraine headache Qualified Code: G43.909 - Migraine without status migrainosus, not intractable , unspecified migraine type Patient Instructions: General Instructions Departure Forms: Tests/Procedures Additional Instructions: Please follow up with your neurologist at your next appointment. Return to the ED if symptoms worsen. Med/Other Pt SpecificInfo: Prescription(s) given Scripts Acetaminophen (Tylenol)325 Mg Oml127 Mg PO Q6H PRN (PAIN SCALE 1 TO 4) #20 TAB Ref 0 Prov:Salina Mckeon DO 01/09/17 Disposition: 01 DISCHARGE HOME Condition: Stable Salina Mckeon DO Jan 09, 2017 14:23
[2017-01-09] MEDS ORDERED: diphenhydrAMINE HCL 50 MG/ML VIAL IV PUSH ONE (14:30)
[2017-01-09] MEDS ORDERED: KETOROLAC TROMETHAMINE 30 MG/ML (IVP) VIAL IV PUSH ONE (14:30)
[2017-01-09] MEDS ORDERED: PROCHLORPERAZINE INJ 10 MG/2 ML VIAL IV PUSH ONE (14:30)
[2017-01-09 15:09] VITALS: BP 140/78; PULSE 78; RESP 16; O2SAT 96
[2017-01-09] MEDS ORDERED: TYLE325T PO (15:14)
== END 2017-01-09 15:22 | disposition home or self-care (01) ==
LOC: PHED 14:01
DX: G43.909 Migraine, unspecified, not intractable, without status migrainosus (principal); K90.0 Celiac disease; E03.9 Hypothyroidism, unspecified; D68.0 Von Willebrand disease
CPT/HCPCS: 96374; 96375; 99284; J0780; J1200; J1885

== ENCOUNTER 2017-02-20 11:53 | Emergency (ER) | payer MEDICARE, MEDICAID ==
[~2017-02-20] VITALS: Ht 167.6 cm; Wt 140.0 kg
[~2017-02-20 11:53] MED LIST changes: +BUSP5TAB PO; -DOXY1CAP91; -PERC10TA27 PO; +PERC5TAB12 PO; -PROM25TA5 PO; +TYLE325T PO; +ZOFR4TAB PO; -ZOFR4TAB3 SL
--- NOTE | 2017-02-20 12:28 | PD ---
HPI Chief Complaint: Pain: Acute or Chronic Time Seen by Provider: 12:00 Travel History International Travel<30 days: No Contact w/Intl Traveler<30days: No Traveled to known affect area: No History of Present Illness HPI 31-year-old female presents to the emergency room for evaluation of right knee pain and swelling for the past 5 days after her knee buckled while walking. She did not actually fall. 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 States she has chronic bilateral lower extremity tremors which causes her knees to give out occasionally. Since the repair last year, it has given out more often than before. She has been keeping it elevated and iced but the swelling has persisted. She has been able to bear weight reports significant pain especially with straightening the knee all the way. States it feels like it locks in place. Reports occasional third, fourth, and fifth toe paresthesias with ambulation. Patient has history of von Willebrand's disease and cannot take NSAIDs but took Advil without significant relief in symptoms. She has also been taking Tylenol which does not seem to help. She called her primary care physician and she has an appointment to get a referral in eyes. She also called her orthopedic surgeon but they told her they could not get her in for 3-4 weeks. PFSH Past Medical History Autoimmune Disease: Yes (Celiac, TMJ) Depression: Yes Diminished Hearing: No Genitourinary: Yes (KIDNEY REFLUX, MULTIPLE STONES; incomplete bladder emptying ) Headaches: Yes (migraomes) Kidney Stones: Yes Thyroid Disease: Yes (Hypo-) Past Surgical History Appendectomy: Yes Cholecystectomy: Yes Oral Surgery: Yes ([place] teeth ) Social History Alcohol Use: Yes (Occ.) Tobacco Use: No Substance Use: No Allergies-Medications (Allergen,Severity, Reaction): Coded Allergies: Ambien (Verified Allergy, Unknown, VOMITING, 02/20/17) Imitrex (Verified Allergy, Unknown, RESP, 02/20/17) Lortab (Verified Allergy, Unknown, HIVES, 02/20/17) Sulfa (Verified Allergy, Unknown, VOMITING, 02/20/17) Reported Meds & Prescriptions Reported Meds & Active Scripts Active Allopurinol 300 Mg Tab 300 Mg PO DAILY Reported Synthroid (Levothyroxine Sodium) 200 Mcg Tab 200 Mcg PO 1X WK Synthroid (Levothyroxine Sodium) 300 Mcg Tab 300 Mcg PO 6X WK B-12 Compliance Inj (Cyanocobalamin) 1,000 Mcg/Ml Kit 1,000 Mcg IM Q30D Review of Systems Except as stated in HPI: all other systems reviewed are Neg Physical Exam Narrative GENERAL: Well-nourished, well-developed female in no acute distress. Afebrile. Ambulatory with one crutch. SKIN: Focused skin assessment warm/dry. No erythema. Very minimal ecchymosis over the medial knee. HEAD: Normocephalic. EYES: No scleral icterus. No injection or drainage. NECK: Supple, trachea midline. No JVD or lymphadenopathy. CARDIOVASCULAR: Regular rate and rhythm without murmurs, gallops, or rubs. RESPIRATORY: Breath sounds equal bilaterally. No accessory muscle use. MUSCULOSKELETAL: No cyanosis. Moderate edema of the right knee. No obvious effusion. 2+ dorsalis pedis pulse. Full range of motion of the ankle and foot. Distal sensation intact. No ankle pain. No bony tenderness to palpation of the knee. Pain with varus stress. Negative anterior and posterior draw tests. Full flexion and limited extension of the right knee secondary to pain. Data Data Last Documented VS Vital Signs Date Time Temp Pulse Resp B/P Pulse Ox O2 Delivery O2 Flow Rate FiO2 02/20/17 12:36 98.7 79 18 140/84 96 Room Air Orders Knee, Complete (4vws) (02/20/17 ) [facility] Medical Decision Making Medical Screen Exam Complete: Yes Emergency Medical Condition: Yes Medical Record Reviewed: Yes Differential Diagnosis Internal derangement, sprain, strain, fracture Narrative Course 31-year-old female presents to the emergency room for evaluation of right knee pain and swelling for the past 5 days. Patient's knee buckled and since then she has had medial knee pain. She did not actually fall. Physical exam reveals mild ecchymosis over the medial aspect of the right knee. Moderate edema of the right knee. No obvious effusion. 2+ dorsalis pedis pulse. Full flexion and limited extension of the right knee secondary to pain. Distal sensation intact. No bony tenderness to palpation of the knee. Pain with varus stress. X-ray shows no acute bony abnormality. Given patient's history, this is likely internal derangement, possible medial meniscal tear. Patient was placed in [place] wrap for support and discharged with crutches. She was encouraged to follow up with her primary care physician as planned on Thursday for outpatient MRI and referral to orthopedic surgeon. She understands and agrees to plan. Diagnosis Primary Impression: Internal derangement of knee Qualified Code: M23.91 - Internal derangement of right knee Referrals: Primary Care Physician Patient Instructions: General Instructions, Knee Sprain (ED) Additional Instructions: Rest and drink plenty of fluids. Take Tylenol as directed, as needed for pain. Continue elevating and applying ice to the affected area for 20 minutes at a time, as needed for pain and swelling. Follow-up with a primary care physician for outpatient MRI. Return to the emergency room for worsening symptoms. Med/Other Pt SpecificInfo: Prescription(s) given Disposition: DISCHARGE HOME Condition: Stable Jessica Moraes Feb 20, 2017 12:28
[2017-02-20 12:36] VITALS: BP 140/84; PULSE 79; RESP 18; TEMP 98.7; O2SAT 96
[2017-02-20] MEDS ORDERED: SYNT300T PO (12:46)
[2017-02-20] MEDS ORDERED: LEVO.2 PO (12:46)
--- NOTE | 2017-02-20 14:20 | RADRPT ---
EXAM DATE/TIME: 02/20/2017 13:18 [facility] COMPARISON: No previous studies available for comparison. INDICATIONS : Right knee pain for 1 week with no trauma. MEDICAL HISTORY : None. prior dx fused growth plates SURGICAL HISTORY : prior meniscus surgery ENCOUNTER: Initial ACUITY: 2 days PAIN SCORE: 5/10 LOCATION: Right knee medial and lateral FINDINGS: Four view examination of the right knee demonstrates no evidence of fracture or dislocation. Bony mi neralization is normal. The articular surfaces are intact. The suprapatellar soft tissues have a no rmal configuration. CONCLUSION: No acute disease or significant arthropathy.. Ben Juarez MD on February 20, 2017 at 14:18 Board Certified Radiologist. This report was verified electronically.
[2017-03-05] MEDS ORDERED: PERC5TAB12 PO (09:38)
[2017-03-05] MEDS ORDERED: ZOFR4TAB PO (09:38)
== END 2017-02-20 15:17 | disposition home or self-care (01) ==
LOC: PHEFT 11:53
DX: M23.91 Unspecified internal derangement of right knee (principal)
CPT/HCPCS: 73564; 99283; E0113

== ENCOUNTER → 2017-03-05 | Day surgery (SDC) | payer MEDICARE, MEDICAID ==
[~2017-03-05] VITALS: Ht 167.6 cm; Wt 138.8 kg
[~2017-03-05] MED LIST changes: +*RESP: ALBUTEROL 2.5 MG/3 ML NEB (PRN) PERIprocedural Use ONLY NEB ONE; +*morphine SULFATE 8 MG/ML PERIprocedure ONLY ONE; +ACETAMINOPHEN 1000 MG/100 ML 100 ML IV ONE; +BELLADONNA ALKALOIDS/OPIUM 60 MG SUPP RECTAL ONE; -BUSP5TAB PO; +CHLORHEXIDINE GLUCONATE 2 % 1 PACK (2 CLOTHS) TOPICAL PRN; -CYCL1TAB29 PO; +DO NOT ADM ANY ANTICOAGULANT DRUGS PRN; +FAMOTIDINE 20 MG/2 ML VIAL ONE; +HYDROmorphone HCL PF 1 MG/ML VIAL ONE; +HYDROmorphone HCL PF 2 MG/ML VIAL IV PRN; +INSULIN HUMAN REGULAR 1,000 UNITS/10 ML VIAL SQ PRN; +LACTATED RINGER'S 1000 ML IV PRN; -LEVO.1 PO; +LEVO.2 PO; +METOPROLOL TARTRATE 25 MG TAB PO PRN; +MIDAZOLAM HCL 2 MG/2 ML VIAL ONE; +NEOSTIGMINE 3 MG/3 ML SYR IV ONE; +ONDANSETRON HCL 4 MG/2 ML VIAL IV PUSH ONE; +ONDANSETRON HCL 4 MG/2 ML VIAL IV PUSH PRN; +PHENYLEPH/NS 1000 MCG/10 ML SYR IV ONE; +POVIDONE IODINE 5% (ANTISEPSIS KIT) 4 APPLICATIONS EACH NARE PRN; +PROPOFOL 200 MG/20 ML AMP IV ONE; +SODIUM CHLORID 0.9% 500 ML IV PRN; +SUGAMMADEX SODIUM 200 MG/2 ML VIAL IV PUSH ONE; +SYNT300T PO; -TYLE325T PO; -ZOFR4SOL PO; +ceFAZolin 1,000 MG/NS 100 ML IV SCH; +ePHEDrine/NS 25 MG/5 ML SYR IV ONE; +traMADol HCL 50 MG TAB PO PRN
[2017-03-05 09:48] LABS: AUTOMATED NEUTROPHIL # 5.2 TH/MM3 (1.8-7.7); BASOPHIL % 0.4 % (0.0-2.0); EOSINOPHIL # 0.1 TH/MM3 (0-0.4); EOSINOPHIL % 1.4 % (0.0-4.0); HEMATOCRIT 42.6 % (35.0-46.0); HEMO FLAGS DIFF FINAL; LYMPHOCYTE # 1.7 TH/MM3 (1.0-4.8); MEAN CELL VOLUME 89.2 FL (80.0-100.0); MEAN CORPUSCULAR HGB CONC 32.5 % (32.0-36.0); MONO % 6.4 % (0.0-8.0); NEUT % 69.8 % (16.0-70.0); PLATELET COUNT 206 TH/MM3 (150-450); RED BLOOD COUNT 4.77 MIL/MM3 (4.00-5.30); RED CELL DISTRIBUTION WIDTH 13.7 % (11.6-17.2); WHITE BLOOD COUNT 7.5 TH/MM3 (4.0-11.0)
--- NOTE | 2017-03-05 11:10 | PD.OP ---
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 Surgeon: John Valentino Sheet Heater(s): None Resident Surgeon: none Operation and Findings: 31-year-old female with history of atonic neurogenic bladder who performs clean intermittent catheterization. Patient has been having difficulty inserting her Cannon catheter due to meatal stenosis and elected to go to the operating room to undergo cystoscopy with urethral dilatation. Risk and benefits were discussed and she was willing to proceed. Patient was brought to the operating room and identified by myself as Melanie Phillips. She's placed in the dorsal lithotomy position, prepped and draped in usual sterile fashion, received preprocedure antibiotics, and general anesthesia was administered. 22 Wallisian cystoscope was inserted and the bladder jones cystoscopy did not reveal any abnormalities. Both ureteral orifices were identified and effluxed was identified bilaterally. At this time, decision was made then to perform urethral dilatation. Using a 24 Wallisian female sound the urethral was dilated up to a 36 Wallisian sound. She tolerated the procedure well and there no complications. She was extubated and transferred to her room in stable condition. John Valentino DO Mar 05, 2017 11:09
[2017-03-05 13:00] VITALS: BP 110/85; PULSE 65; RESP 20; TEMP 98; O2SAT 97
== END | disposition home or self-care (01) ==
LOC: HSDC 08:29
PROVIDERS: ATTEND Urology
DX: N35.9 Urethral stricture, unspecified (principal); N31.2 Flaccid neuropathic bladder, not elsewhere classified; R33.9 Retention of urine, unspecified; E03.9 Hypothyroidism, unspecified; K58.9 Irritable bowel syndrome, unspecified; M19.90 Unspecified osteoarthritis, unspecified site; Z01.818 Encounter for other preprocedural examination
CPT/HCPCS: 00910; 52281; 85025; J0131; J0690; J1170; J2250; J2270; J2370; J2405; J2710; J3010; J7613

== ENCOUNTER → 2017-05-08 | Outpatient (CLI) | payer MEDICARE, MEDICAID ==
[~2017-05-08] MED LIST changes: -*RESP: ALBUTEROL 2.5 MG/3 ML NEB (PRN) PERIprocedural Use ONLY NEB ONE; -*morphine SULFATE 8 MG/ML PERIprocedure ONLY ONE; -ACETAMINOPHEN 1000 MG/100 ML 100 ML IV ONE; -BELLADONNA ALKALOIDS/OPIUM 60 MG SUPP RECTAL ONE; +BUSP15TA PO; -CHLORHEXIDINE GLUCONATE 2 % 1 PACK (2 CLOTHS) TOPICAL PRN; -DO NOT ADM ANY ANTICOAGULANT DRUGS PRN; -FAMOTIDINE 20 MG/2 ML VIAL ONE; -HYDROmorphone HCL PF 1 MG/ML VIAL ONE; -HYDROmorphone HCL PF 2 MG/ML VIAL IV PRN; -INSULIN HUMAN REGULAR 1,000 UNITS/10 ML VIAL SQ PRN; -LACTATED RINGER'S 1000 ML IV PRN; -METOPROLOL TARTRATE 25 MG TAB PO PRN; -MIDAZOLAM HCL 2 MG/2 ML VIAL ONE; +MIREIUD I-UTERINE; -NEOSTIGMINE 3 MG/3 ML SYR IV ONE; -ONDANSETRON HCL 4 MG/2 ML VIAL IV PUSH ONE; -ONDANSETRON HCL 4 MG/2 ML VIAL IV PUSH PRN; -PHENYLEPH/NS 1000 MCG/10 ML SYR IV ONE; -POVIDONE IODINE 5% (ANTISEPSIS KIT) 4 APPLICATIONS EACH NARE PRN; -PROPOFOL 200 MG/20 ML AMP IV ONE; -SODIUM CHLORID 0.9% 500 ML IV PRN; -SUGAMMADEX SODIUM 200 MG/2 ML VIAL IV PUSH ONE; -ceFAZolin 1,000 MG/NS 100 ML IV SCH; -ePHEDrine/NS 25 MG/5 ML SYR IV ONE; -traMADol HCL 50 MG TAB PO PRN
[2017-05-08 10:34] LABS: BASOPHIL % 0.3 % (0.0-2.0); EOSINOPHIL # 0.1 TH/MM3 (0-0.4); EOSINOPHIL % 1.7 % (0.0-4.0); HEMATOCRIT 40.6 % (35.0-46.0); HEMOGLOBIN 13.5 GM/DL (11.6-15.3); LYMPH % 28.7 % (9.0-44.0); LYMPHOCYTE # 1.8 TH/MM3 (1.0-4.8); MEAN CELL VOLUME 90.1 FL (80.0-100.0); MEAN CORPUSCULAR HEMOGLOBIN 29.9 PG (27.0-34.0); MEAN CORPUSCULAR HGB CONC 33.2 % (32.0-36.0); MONO % 5.8 % (0.0-8.0); MONOCYTE # 0.4 TH/MM3 (0-0.9); NEUT % 63.5 % (16.0-70.0); PLATELET COUNT 180 TH/MM3 (150-450); RED BLOOD COUNT 4.51 MIL/MM3 (4.00-5.30); RED CELL DISTRIBUTION WIDTH 14.4 % (11.6-17.2); WHITE BLOOD COUNT 6.4 TH/MM3 (4.0-11.0)
== END ==
LOC: CPRE 09:49
PROVIDERS: ATTEND Urology
DX: Z01.812 Encounter for preprocedural laboratory examination (principal); N31.2 Flaccid neuropathic bladder, not elsewhere classified
CPT/HCPCS: 36415; 85025

== ENCOUNTER → 2017-05-15 | Day surgery (SDC) | payer MEDICARE, MEDICAID ==
[~2017-05-15] VITALS: Ht 167.6 cm; Wt 139.8 kg
[~2017-05-15] MED LIST changes: +CHLORHEXIDINE GLUCONATE 2 % 1 PACK (2 CLOTHS) TOPICAL PRN; +DESMOPRESSIN IV SCH; +INSULIN HUMAN REGULAR 1,000 UNITS/10 ML VIAL SQ PRN; +LACTATED RINGER'S 1000 ML IV PRN; +LIDOCAINE 1%/EPINEPHrine 1:100,000 SOLN 50 ML VIAL ONE; +METOPROLOL TARTRATE 25 MG TAB PO PRN; +MIDAZOLAM HCL 2 MG/2 ML VIAL IV ONE; +MIDAZOLAM HCL 2 MG/2 ML VIAL ONE; +MORPHINE SULFATE 4 MG/ML INJ IV PRN; +MORPHINE SULFATE 4 MG/ML INJ ONE; +ONDANSETRON HCL 4 MG/2 ML VIAL IV PRN; +PROPOFOL 200 MG/20 ML AMP IV ONE; +SODIUM CHLORID 0.9% 500 ML IV PRN; +SODIUM CHLORIDE 0.9% IV SCH; +ceFAZolin 1,000 MG/NS 100 ML IV SCH; +oxyCODONE/ACETAMINOPHEN 5 MG/325 MG TAB ONE; +oxyCODONE/ACETAMINOPHEN 5 MG/325 MG TAB PO PRN
[2017-05-15 08:10] LABS: APTT (PATIENT) 30.8 SEC (24.3-30.1); INTERNATIONAL NORMALIZED RATIO 0.9 RATIO; PROTHROMBIN TIME - PATIENT 10.4 SEC (9.8-11.6)
--- NOTE | 2017-05-15 10:19 | PD.OP ---
Operative Report Date of Surgery: May 15, 2017 Preoperative Diagnosis: Atonic bladder Postoperative Diagnosis: Same Procedure: InterStim percutaneous sacral nerve stimulation test with fluoroscopic guidance for needle placement. Repeat a procedure on the opposite side of the sacral nerve. Anesthesia: MAC Surgeon: John Valentino Hadoop Consultant(s): None Resident Surgeon: None Operation and Findings: 31-year-old female with history of atonic neurogenic bladder. Patient on continuous intermittent catheterization 4-5 times per day with volumes in the 100s to 200 cc range. Patient elected to undergo a trial of InterStim therapy to see if this will help with her atonic neurogenic bladder. Patient was properly identified and placed in the prone position. Pillows were placed under the lower abdomen to flatten the sacrum and under the shins to allow the toes to dangle freely. The ground pad was placed on the bottom of the patient' s foot and the long test stimulator cable was connected to the ground pad into the external test stimulator. The patient was prepped and draped in the usual sterile fashion. Preprocedure bites were also administered. The C-arm was moved into the AP position to provide fluoroscopic mapping of the sacral region which included marking out the midline of the sacrum, SI joints, sciatic notches , medial foraminal borders and sacral foramen. Local injection of half percent Marcaine was administered in a foramen needle was placed in a 60 angle into the S3 foramen. The C-arm was then put into a lateral position to check depth of the needle until identified placement within the proper foramen. Proper S3 needle position was confirmed by patient's sensation of stimulation, direct observation of the lifting of the perineum and observation of plantar flexion of the great toe. The foramen needle stylette was removed and a per cutaneously was inserted to proper depth using a 5.0-lead marker. The placement was tested and confirmed by connecting the patient cable J-hook to the top of the test engineer and by fluoroscopic imaging. The needle was taken out over the lead. The above procedure was performed again on the opposite side and all appropriate responses were again verified. The leads were connected to the short test stimulator cables and ground pads. Patient was cleaned off and the entire region was covered with Tegaderm. EBL was minimal. Using external test stimulator the patient was programmed to optimum sensation via the lead and given instructions on utilizing the external test stimulator prior to discharge. Urinary diary will be kept until return appointment to the office to discuss results of this test stimulation. CPT codes include 69572 and with modifier 59. John Valentino DO May 15, 2017 10:19
[2017-05-15 11:15] VITALS: BP 93/56; PULSE 97; RESP 16; TEMP 98.6; O2SAT 100
--- NOTE | 2017-05-15 12:11 | EKG ---
Date Performed: 05/15/2017 Time Performed: 07:58:17 PTAGE: 31 years EKG: Sinus rhythm LOW QRS VOLTAGE IN PRECORDIAL LEADS NONSPECIFIC T-WAVE ABNORMALITY BORDERLINE ECG NO PREVIOUS TRACING DOCTOR: Janusz Cancino Interpretating Date/Time 05/15/2017 12:08:13
--- NOTE | 2017-05-15 17:20 | RADRPT ---
EXAM DATE/TIME: 05/15/2017 09:43 [facility] COMPARISON: No previous studies available for comparison. INDICATIONS : Trial temporary interstem therapy. MEDICAL HISTORY : None. SURGICAL HISTORY : None. ENCOUNTER: Initial ACUITY: 1 day PAIN SCORE: Non-responsive. LOCATION: Sacrum FINDINGS: Inter stem device is evident along the sacrum along with an IUD. CONCLUSION: Inter stem device as described above. Александр Sorenson MD FACR on May 15, 2017 at 17:17 Board Certified Radiologist. This report was verified electronically.
== END | disposition home or self-care (01) ==
LOC: HSDC 06:59
PROVIDERS: ATTEND Urology
DX: N31.2 Flaccid neuropathic bladder, not elsewhere classified (principal); I10 Essential (primary) hypertension; R00.2 Palpitations
CPT/HCPCS: 00300; 64561; 72220; 76000; 85610; 85730; 86850; 86900; 86901; 93005; J0690; J2250; J2270; J2597; J3010; J7120; C1778

== ENCOUNTER → 2017-05-29 | Day surgery (SDC) | payer MEDICARE, MEDICAID ==
[~2017-05-29] VITALS: Ht 167.6 cm; Wt 141.4 kg
[~2017-05-29] MED LIST changes: +BUPIVACAINE/EPINEPHRINE 0.25% 50 ML VIAL ONE; +FAMOTIDINE 20 MG/2 ML VIAL ONE; -INSULIN HUMAN REGULAR 1,000 UNITS/10 ML VIAL SQ PRN; -LIDOCAINE 1%/EPINEPHrine 1:100,000 SOLN 50 ML VIAL ONE; +LIDOCAINE HCL 1% PF 5 ML SYRINGE OTHER ONE; -MIDAZOLAM HCL 2 MG/2 ML VIAL IV ONE; -MIDAZOLAM HCL 2 MG/2 ML VIAL ONE; +MORPHINE SULFATE 2 MG/ML INJ IV PRN; +MORPHINE SULFATE 2 MG/ML INJ ONE; -MORPHINE SULFATE 4 MG/ML INJ IV PRN; -MORPHINE SULFATE 4 MG/ML INJ ONE; +ONDANSETRON HCL 4 MG/2 ML VIAL IV PUSH ONE; +PROPOFOL 500 MG/50 ML INJ 0 ML ONE; +PROPOFOL 500 MG/50 ML INJ 100 ML ONE; +SODIUM CHLORIDE 0.9% 20 ML VIAL ONE; +STERILE WATER FOR INJECTION 20 ML VIAL ONE; +ceFAZolin INJ 1,000 MG VIAL ONE; -oxyCODONE/ACETAMINOPHEN 5 MG/325 MG TAB ONE; -oxyCODONE/ACETAMINOPHEN 5 MG/325 MG TAB PO PRN; +oxyCODONE/ACETAMINOPHEN 7.5 MG/325 MG TAB PO PRN
--- NOTE | 2017-05-29 11:59 | RADRPT ---
EXAM DATE/TIME: 05/29/2017 11:38 [facility] COMPARISON: [facility], May 15, 2017, 9:43. INDICATIONS : Interstim placement. MEDICAL HISTORY : None. SURGICAL HISTORY : None. ENCOUNTER: Initial ACUITY: 1 day PAIN SCORE: Non-responsive. LOCATION: pelvis FINDINGS: Two-view examination of the sacrum demonstrate a wire overlying the left sacral area. There is good a lignment SI joints.. CONCLUSION: Wire overlying the left sacrum. Jasiel Kearney MD on May 29, 2017 at 11:56 Board Certified Radiologist. This report was verified electronically.
--- NOTE | 2017-05-29 12:00 | PD.OP ---
Operative Report Date of Surgery: May 29, 2017 Preoperative Diagnosis: Atonic neurogenic bladder Postoperative Diagnosis: Same Procedure: InterStim therapy full system implant Anesthesia: MAC Surgeon: John Valentino Commercial Fisher(s): None Resident Surgeon: None Operation and Findings: 31-year-old female with a history of an atonic neurogenic bladder. Patient has been performing clean intermittent catheterization and underwent a trial of InterStim which helped her with voiding. Decision was then made to proceed with a full InterStim implant. Risk and benefits assessed preoperative she is willing to proceed. The patient was properly identified and placed in the prone position and MAC anesthesia was administered. Pillows were placed under the lower abdomen to flatten the sacrum and under the shins to allow the toes to dangle freely. The patient was prepped and draped in usual sterile fashion. The C-arm was also prepped draped and moved in the AP position to provide fluoroscopic mapping of the sacral region which included marking out the midline of the sacrum, SI joints, sciatic matches, medial foramen borders and sacral foramen. The C-arm was moved to the lateral position to image the area from the sacral promontory to the coccyx. Local injection using 1/2% Marcaine was administered. The foramen needle was introduced approximate 2 cm above the sciatic notch and 2 cm lateral to the sacral midline, feeling for foraminal margins until the S3 foramen was identified and penetrated. The depth of the foramen needle was confirmed and adjusted fluoroscopically. Proper needle position was confirmed by patient identification of location of sensation, direct observation of the lifting of the perineum or bellowing and observation of plantar flexion of the great toe utilizing the external test stimulator. The foramen needle was removed and a directional guide was placed and confirmed fluoroscopically. The foramen needle was removed. An incision was made peripherally to the directional guide to the fascial layer. The lead introducer sheath with dilator was placed over the directional guide and directed into the foramen to ensure the radiopaque marker of the lead introducer did not extend beyond the anterior edge of the sacrum. The dilator was unlocked and removed along the directional guide. The lead was then placed through the introducer sheath to the first white line. Position was checked fluoroscopically. The lead was then further reduced until 3 electrodes were visible below the sacrum. Each electrode was tested for location and patient sensation, visualization of wilman, and plantar flexion of the great toe. After satisfactory positioning was confirmed, the introducer sheath was retracted under continuous fluoroscopy deploying lead tines into the presacral tissue. Further incision was made in the subcutaneous tissue posterior to the iliac crest and lateral to the sacrum. Blunt dissection was continued into the gluteal fascia was identified and hemostasis was achieved allowing for a sufficient pocket for the neurostimulator. The tunneling tool with Strahl was placed from the lead exit site subcutaneously to the incised pocket site. The lead was cleansed of bodily fluids and dried. The lead was inserted into the InterStim neurostimulator and the metal bands were aligned with the blue lead tip clearly visible in the distal portion of the neurostimulator had her. The single screw set was tightened with the hex wrench. The neurostimulator was placed in the subcutaneous his pocket with the etched identification side placed upwards and the excess lead wrapped counterclockwise around the neurostimulator. The programming head was placed over the implanted neurostimulator in a sterile cover to ensure adequate lead connected fashion and that parameters were within normal limits. Impedance were confirmed to be within normal limits greater than 50 and less than 4000. The wounds were irrigated with an back solution and water and closed with 4-0 Monocryl subcuticular sutures. Catheter correct. Steri-Strips and gauze 4 x 4' s were placed over the incision site. EBL was minimal. The patient was transferred to her room in stable condition. Using a clinical programmer or analyst, the patient was programmed to electrode of October and sensation, and given instructions on utilizing the patient program prior to discharge. Complex programming of the neurostimulator was performed. Final electrode selections were then set. CPT codes for this procedure include: 77645, 80485, 53875-46, 62891. She will follow-up in the office in 2 weeks for a wound check. John Valentino DO May 29, 2017 12:00
[2017-05-29 13:00] VITALS: BP 121/77; PULSE 85; RESP 20; TEMP 98.1; O2SAT 98
== END | disposition home or self-care (01) ==
LOC: HSDC 06:29
PROVIDERS: ATTEND Urology
DX: N31.2 Flaccid neuropathic bladder, not elsewhere classified (principal); N32.81 Overactive bladder
CPT/HCPCS: 00630; 64581; 72220; 76000; J0690; J2270; J2597; J7120; C1713; C1767; C1778; C1787; J2405

== ENCOUNTER 2017-06-18 18:36 | Emergency (ER) | payer MEDICARE, MEDICAID ==
[~2017-06-18] VITALS: Ht 167.6 cm; Wt 138.1 kg
[~2017-06-18 18:36] MED LIST changes: -BUPIVACAINE/EPINEPHRINE 0.25% 50 ML VIAL ONE; -CHLORHEXIDINE GLUCONATE 2 % 1 PACK (2 CLOTHS) TOPICAL PRN; -DESMOPRESSIN IV SCH; -FAMOTIDINE 20 MG/2 ML VIAL ONE; -LACTATED RINGER'S 1000 ML IV PRN; -LIDOCAINE HCL 1% PF 5 ML SYRINGE OTHER ONE; -METOPROLOL TARTRATE 25 MG TAB PO PRN; -MIREIUD I-UTERINE; -MORPHINE SULFATE 2 MG/ML INJ IV PRN; -MORPHINE SULFATE 2 MG/ML INJ ONE; -ONDANSETRON HCL 4 MG/2 ML VIAL IV PRN; -ONDANSETRON HCL 4 MG/2 ML VIAL IV PUSH ONE; -PROPOFOL 200 MG/20 ML AMP IV ONE; -PROPOFOL 500 MG/50 ML INJ 0 ML ONE; -PROPOFOL 500 MG/50 ML INJ 100 ML ONE; -SODIUM CHLORID 0.9% 500 ML IV PRN; -SODIUM CHLORIDE 0.9% 20 ML VIAL ONE; -SODIUM CHLORIDE 0.9% IV SCH; -STERILE WATER FOR INJECTION 20 ML VIAL ONE; -ceFAZolin 1,000 MG/NS 100 ML IV SCH; -ceFAZolin INJ 1,000 MG VIAL ONE; -oxyCODONE/ACETAMINOPHEN 7.5 MG/325 MG TAB PO PRN
[2017-06-18 18:51] VITALS: BP 137/79; PULSE 107; RESP 16; TEMP 98.6; O2SAT 100
[2017-06-18] MEDS ORDERED: SODIUM CHLOR 0.9% 1000 ML INJ 1,000 ML IV ONE (19:12)
[2017-06-18] MEDS ORDERED: CIPR-9 PO (19:13)
[2017-06-18] MEDS ORDERED: METOCLOPRAMIDE HCL 10 MG/2 ML VIAL IV PUSH ONE (19:15)
[2017-06-18] MEDS ORDERED: SODIUM CHLORIDE 0.9% FLUSH 10 ML FLUSH IVF PRN (19:15)
[2017-06-18 19:20] LABS: BLOOD, URINE LARGE (NEG); GLUCOSE,URINE NEG (NEG); KETONE, URINE NEG (NEG); NITRITE,URINE NEG (NEG)
[2017-06-18 19:25] LABS: URINE COLOR YELLOW (YELLW/STRAW)
[2017-06-18 19:31] LABS: COMMENT (UR) CULT NOT INDICATED; CULTURE IF INDICATED CULT NOT INDICATED; SQUAMOUS EPITHELIAL CELL URINE 0-5 /hpf (0-5)
[2017-06-18 19:52] VITALS: PULSE 95; RESP 18; O2SAT 97
[2017-06-18 19:56] LABS: AUTOMATED NEUTROPHIL # 5.6 TH/MM3 (1.8-7.7); BASOPHIL % 0.5 % (0.0-2.0); EOSINOPHIL # 0.1 TH/MM3 (0-0.4); EOSINOPHIL % 1.8 % (0.0-4.0); HEMATOCRIT 40.2 % (35.0-46.0); HEMO FLAGS DIFF FINAL; LYMPH % 21.4 % (9.0-44.0); LYMPHOCYTE # 1.7 TH/MM3 (1.0-4.8); MEAN CELL VOLUME 88.3 FL (80.0-100.0); MEAN CORPUSCULAR HEMOGLOBIN 29.3 PG (27.0-34.0); MEAN CORPUSCULAR HGB CONC 33.2 % (32.0-36.0); MONO % 6.4 % (0.0-8.0); NEUT % 69.9 % (16.0-70.0); PLATELET COUNT 191 TH/MM3 (150-450); RED BLOOD COUNT 4.55 MIL/MM3 (4.00-5.30); RED CELL DISTRIBUTION WIDTH 12.5 % (11.6-17.2); WHITE BLOOD COUNT 7.9 TH/MM3 (4.0-11.0)
--- NOTE | 2017-06-18 19:59 | PD ---
HPI Chief Complaint: Complaint Time Seen by Provider: 19:12 Travel History International Travel<30 days: No Contact w/Intl Traveler<30days: No Traveled to known affect area: No History of Present Illness HPI 31-year-old female presents to the emergency department for planned of dysuria flank pain fever or nausea and vomiting. Symptoms began approximately 6 days ago. Patient has history of recurrent urinary tract infections. Patient has issues with incomplete emptying of her bladder and as recently as May 29 had an interest in place by her urologist Dr. Valentino. Patient also has prior history of stones that typically affect her right kidney as well as measures for his kidney on the right. Patient denies . Patient has IUD in place. Patient reportedly went to urgent care and was started on Cipro for UTI however due to nausea and vomiting she had difficulty keeping down the medication and followed up with her primary care provider on Thursday and urine specimens collected and sent for resulting in the interim she was given an injection of Rocephin and was started on Macrobid. Patient was followed at once a.m. at the primary care provider's office and redo positional daily Rocephin. Patient is intolerant of Macrobid with ongoing vomiting and culture from Thursday reportedly identified organism sensitive to Cipro therefore was re-prescribed Cipro today however vomited again and was unable to tolerate further medication so presents now for further evaluation. Patient was given a prescription for Zofran which did not control her nausea and/or vomiting. No report of hematuria. No reported vaginal discharge or vaginal bleeding. Patient has had intermittent subjective fever. Patient has not contacted her urologist. Patient also had a negative flu test conducted by her primary care provider. [facility] Past Medical History Narrative Medical Celiac disease, TMJ, migraine, prolonged QT syndrome, medullary sponge kidney, atonic/neurogenic bladder, thyroid dysfunction, clinical obesity, kidney stones , anxiety; IUD, appendectomy, cholecystectomy, interested in placement, lithotripsy, ureteral stent; no tobacco use no alcohol use no substance use; nursing notes reviewed Autoimmune Disease: Yes (Celiac, TMJ) Blood Disorders: Yes (vonwillebrand disease) Depression: Yes Cancer: No Cardiovascular Problems: Yes (LONG QT INTERVAL) Diabetes: No Diminished Hearing: No Endocrine: No Gastrointestinal Disorders: Yes (CELIAC DISEASE) Genitourinary: Yes (KIDNEY REFLUX, MULTIPLE STONES; NEUROCYSTIC BLADDER) Headaches: Yes (migraines) Hepatitis: No Hiatal Hernia: No Hypertension: Yes Immune Disorder: No Kidney Stones: Yes Musculoskeletal: Yes (LEG TREMORS) Neurologic: Yes (MIGRAINES) Psychiatric: Yes (ANXIETY) Reproductive: No Respiratory: No Immunizations Current: Yes Thyroid Disease: Yes (Hypo-) Tetanus Vaccination: > 5 Years Influenza Vaccination: No ?: Not LMP: has IUD Past Surgical History Abdominal Surgery: Yes (CHOLECYSTECTOMY, APPENDECTOMY) AICD: No Appendectomy: Yes Body Medical Devices: IUD Cardiac Surgery: No Cholecystectomy: Yes Ear Surgery: No Endocrine Surgery: No Eye Surgery: No Genitourinary Surgery: Yes (URETHRAL DILATION, LITHOTRIPSY) Gynecologic Surgery: No Joint Replacement: No Neurologic Surgery: Yes (interstim ) Oral Surgery: Yes ([place] teeth ) Pacemaker: No Thoracic Surgery: No Social History Alcohol Use: No Tobacco Use: No Substance Use: No Allergies-Medications (Allergen,Severity, Reaction): Coded Allergies: povidone-iodine (Verified Allergy, Severe, BLISTER, 06/18/17) soap (Verified Allergy, Severe, BLISTER, 06/18/17) Sulfa (Sulfonamide Antibiotics) (Verified Allergy, Unknown, VOMITING, 06/18) hydrocodone (Verified Allergy, Unknown, HIVES, 06/18/17) sumatriptan (Verified Allergy, Unknown, RESP, 06/18/17) zolpidem (Verified Allergy, Unknown, VOMITING, 06/18/17) Reported Meds & Prescriptions Reported Meds & Active Scripts Active Allopurinol 300 Mg Tab 300 Mg PO DAILY Reported Cipro (Ciprofloxacin HCl) 500 Mg Tab 500 Mg PO BID Buspirone (Buspirone HCl) 15 Mg Tab 15 Mg PO TID PRN Zofran (Ondansetron HCl) 4 Mg Tab 4 Mg PO Q12HR PRN Synthroid (Levothyroxine Sodium) 200 Mcg Tab 200 Mcg PO 1X WK Synthroid (Levothyroxine Sodium) 300 Mcg Tab 300 Mcg PO 6X WK B-12 Compliance Inj (Cyanocobalamin) 1,000 Mcg/Ml Kit 1,000 Mcg IM Q30D Review of Systems Except as stated in HPI: all other systems reviewed are Neg General / Constitutional: Positive: Fever (subjective), No: Chills Eyes: No: Visual changes HENT: No: Headaches, Congestion Cardiovascular: No: Chest Pain or Discomfort Respiratory: No: Shortness of Breath Gastrointestinal: Positive: Nausea, Vomiting, Abdominal Pain Genitourinary: Positive: Dysuria (left upper quadrant left flank), Flank Pain ( left) Musculoskeletal: No: Myalgias, Arthralgias Skin: No Rash Neurologic: No: Weakness Psychiatric: No: Anxiety Hematologic/Lymphatic: No: Lymph Node Enlargement Physical Exam Narrative GENERAL: Well-developed well-nourished female in no acute distress no respiratory distress SKIN: Warm and dry. HEAD: Normocephalic. EYES: No scleral icterus. No injection or drainage. NECK: Supple, trachea midline. No JVD or lymphadenopathy. CARDIOVASCULAR: Regular rate and rhythm without murmurs, gallops, or rubs. RESPIRATORY: Breath sounds equal bilaterally. No accessory muscle use. GASTROINTESTINAL: Abdomen soft, very mild left upper quadrant tenderness to deep palpation without guarding or rebound, nondistended. MUSCULOSKELETAL: No cyanosis, or edema. BACK: Nontender without obvious deformity. Left CVA tenderness. Data Data Last Documented VS Vital Signs Date Time Temp Pulse Resp B/P (MAP) Pulse Ox O2 Delivery O2 Flow Rate FiO2 06/18/17 20:25 88 16 99/69 (79) 97 Room Air 06/18/17 18:51 98.6 Orders Orders Ed Urine Pregnancytest Poc (06/18/17 18:54) Urinalysis - C+S If Indicated (06/18/17 18:54) Complete Blood Count With Diff (06/18/17 19:12) Basic Metabolic Panel (Bmp) (06/18/17 19:12) Ct Abd/Pel W/O Iv Contrast (06/18/17 19:12) Ecg Monitoring (06/18/17 19:12) Iv Access Insert/Monitor (06/18/17 19:12) Sodium Chloride 0.9% Flush (Ns Flush) (06/18/17 19:15) Sodium Chlor 0.9% 1000 Ml Inj (Ns 1000 M (06/18/17 19:12) Metoclopramide Inj (Reglan Inj) (06/18/17 19:15) Labs Laboratory Tests Test 06/18/17 19:00 06/18/17 19:46 Urine Color YELLOW Urine Turbidity CLEAR Urine pH 6.0 Urine Specific [place] 1.016 Urine Protein NEG mg/dL Urine Glucose (UA) NEG mg/dL Urine Ketones NEG mg/dL Urine Occult Blood LARGE Urine Nitrite NEG Urine Bilirubin NEG Urine Leukocyte Esterase NEG Urine RBC 50-99 /hpf Urine WBC 3-5 /hpf Urine Squamous Epithelial Cells 0-5 /hpf Urine Bacteria NONE /hpf Microscopic Urinalysis Comment CULT NOT INDICATED White Blood Count 7.9 TH/MM3 Red Blood Count 4.55 MIL/MM3 Hemoglobin 13.4 GM/DL Hematocrit 40.2 % Mean Corpuscular Volume 88.3 FL Mean Corpuscular Hemoglobin 29.3 PG Mean Corpuscular Hemoglobin Concent 33.2 % Red Cell Distribution Width 12.5 % Platelet Count 191 TH/MM3 Mean Platelet Volume 9.3 FL Neutrophils (%) (Auto) 69.9 % Lymphocytes (%) (Auto) 21.4 % Monocytes (%) (Auto) 6.4 % Eosinophils (%) (Auto) 1.8 % Basophils (%) (Auto) 0.5 % Neutrophils # (Auto) 5.6 TH/MM3 Lymphocytes # (Auto) 1.7 TH/MM3 Monocytes # (Auto) 0.5 TH/MM3 Eosinophils # (Auto) 0.1 TH/MM3 Basophils # (Auto) 0.0 TH/MM3 CBC Comment DIFF FINAL Differential Comment Blood Urea Nitrogen 6 MG/DL Creatinine 0.83 MG/DL Random Glucose 95 MG/DL Calcium Level 8.9 MG/DL Sodium Level 138 MEQ/L Potassium Level 3.7 MEQ/L Chloride Level 106 MEQ/L Carbon Dioxide Level 24.8 MEQ/L Anion Gap 7 MEQ/L Estimat Glomerular Filtration Rate 81 ML/MIN [facility] Medical Decision Making Medical Screen Exam Complete: Yes Emergency Medical Condition: Yes Medical Record Reviewed: Yes Interpretation(s) POC hcg: negative CBC & BMP Diagram 06/18/17 19:46 Calcium Level 8.9 Vital Signs Date Time Temp Pulse Resp B/P (MAP) Pulse Ox O2 Delivery O2 Flow Rate FiO2 06/18/17 20:25 88 16 99/69 (79) 97 Room Air 06/18/17 19:52 95 18 97 Room Air 06/18/17 18:51 98.6 107 16 137/79 (98) 100 UA: blood few RBC's CT abd/pel: CONCLUSION: 1. No acute obstructive uropathy. 2. Multiple calcified nonobstructing right renal calculi. Sunny Fitzgerald MD on June 18, 2017 at 20:52 Board Certified Radiologist. This report was verified electronically. Differential Diagnosis UTI obstructive uropathy ureterolithiasis nephrolithiasis colitis medication intolerance dehydration Narrative Course IV access obtained specimens collected and sent for resulting patient administered Reglan 10 mg IV as intolerant of Zofran also bolus of normal saline At 8:37 PM patient notes clinical improvement has had no further vomiting and minimal nausea after Reglan so receiving IV fluids; lab values are all found to be in normal range [id number] hCG is negative and patient is waiting to have CT performed CT resulted reveals right-sided nephrolithiasis without obstructive uropathy in no stranding or acute inflammatory process also no free air or free fluid surgical and patient with spouse at bedside informed of imaging results and stable for outpatient management. Patient is able to tolerate oral hydration the emergency department. Patient given prescription for Reglan. Patient encouraged to follow-up with her primary care provider times one day plea course of antibiotic as prescribed by her primary. Diagnosis Primary Impression: Left flank pain Additional Impression: Right nephrolithiasis Referrals: Primary Care Physician 1 day Patient Instructions: General Instructions Additional Instructions: complete course of antibiotic as per your PCP/provider take Reglan as prescribed as needed for nausea and/or vomiting increase fluid hydration return to the ED for any concerns May take as needed as tolerated acetaminophen/Tylenol every 4 hours for fever 100.4F or greater or for minor pain May take ibuprofen/Advil/Motrin 600 mg as often as every 6 hours or up to maximum 800 mg as often as every 8 hours for fever 100.4F or greater for pain associated with inflammation Follow up with her primary care provider call office in a.m. to schedule follow- up appointment Med/Other Pt SpecificInfo: Prescription(s) given Scripts Metoclopramide (Reglan) 10 Mg Tab 10 MG PO Q6HR Y for NAUSEA OR VOMITING, #10 TAB 0 Refills Prov: Sadia Gallegos MD 06/18/17 Disposition: 01 DISCHARGE HOME Condition: Stable Sadia Gallegos MD Jun 18, 2017 19:59
[2017-06-18 20:02] LABS: POTASSIUM 3.7 MEQ/L (3.5-5.1)
[2017-06-18 20:05] LABS: BICARBONATE 24.8 MEQ/L (21.0-32.0)
[2017-06-18 20:25] VITALS: BP 99/69; PULSE 88; RESP 16; O2SAT 97
--- NOTE | 2017-06-18 20:58 | RADRPT ---
EXAM DATE/TIME: 06/18/2017 20:11 [facility] COMPARISON: CT ABDOMEN & PELVIS W/O CONTRAST, November 08, 2016, 22:42. INDICATIONS : Left flank pain for 6 days. UTI ORAL CONTRAST: No oral contrast ingested. RADIATION DOSE: 27.95 CTDIvol (mGy) ; Patient body habitus MEDICAL HISTORY : Renal calculi. Hypertension. SURGICAL HISTORY : Appendectomy. Cholecystectomy. ENCOUNTER: Initial ACUITY: 4 - 6 days PAIN SCALE: 6/10 LOCATION: Left flank TECHNIQUE: Volumetric scanning of the abdomen and pelvis was performed. Using automated exposure control and ad justment of the mA and/or kV according to patient size, radiation dose was kept as low as reasonably achievable to obtain optimal diagnostic quality images. DICOM format image data is available electro nically for review and comparison. FINDINGS: LOWER LUNGS: The visualized lower lungs are clear. LIVER: Homogeneous density without lesion. There is no dilation of the biliary tree. No calcified gallston es. Status post cholecystectomy. SPLEEN: Normal size without lesion. PANCREAS: Within normal limits. KIDNEYS: Normal in size and shape. Multiple calcified nonobstructing right renal calculi are noted with the l argest measuring 5 mm in the lower pole. There is no mass or hydronephrosis. ADRENAL GLANDS: Within normal limits. VASCULAR: There is no aortic aneurysm. BOWEL/MESENTERY: The stomach, small bowel, and colon demonstrate no acute abnormality. There is no free intraperitone al air or fluid. ABDOMINAL WALL: Within normal limits. RETROPERITONEUM: There is no lymphadenopathy. BLADDER: No wall thickening or mass. REPRODUCTIVE: An IUD is noted within the endometrial cavity. INGUINAL: There is no lymphadenopathy or hernia. MUSCULOSKELETAL: Within normal limits for patient age. CONCLUSION: 1. No acute obstructive uropathy. 2. Multiple calcified nonobstructing right renal calculi. Sunny Fitzgerald MD on June 18, 2017 at 20:52 Board Certified Radiologist. This report was verified electronically.
[2017-06-18] MEDS ORDERED: REGL10TA5 PO (21:06)
[2017-06-18 21:11] VITALS: BP 110/70
== END 2017-06-18 21:16 | disposition home or self-care (01) ==
LOC: PHED 18:36
DX: N20.0 Calculus of kidney (principal); E03.9 Hypothyroidism, unspecified
CPT/HCPCS: 74176; 80048; 81001; 84703; 85025; 96361; 96374; 99285; J2765; J7030

== ENCOUNTER 2017-06-20 16:32 | Emergency (ER) | payer MEDICARE, MEDICAID ==
[~2017-06-20] VITALS: Ht 167.6 cm; Wt 138.7 kg
[~2017-06-20 16:32] MED LIST changes: +CIPR-9 PO; -PERC5TAB12 PO; +REGL10TA5 PO
[2017-06-20 16:53] VITALS: BP 152/72; PULSE 90; RESP 16; TEMP 98.5; O2SAT 99
--- NOTE | 2017-06-20 17:26 | PD ---
HPI Chief Complaint: Injury Time Seen by Provider: 17:23 Travel History International Travel<30 days: No Contact w/Intl Traveler<30days: No Traveled to known affect area: No History of Present Illness HPI 31 -year-old female here with right shoulder pain and decreased range of motion 3 days. She cannot recall specific injury. She has pain with range of motion which is relieved with rest. She denies paresthesia or weakness of the extremity. Symptom severity is moderate. Slightly relieved with immobilization. PFSH Past Medical History Autoimmune Disease: Yes (Celiac, TMJ) Blood Disorders: Yes (vonwillebrand disease) Depression: Yes Cancer: No Cardiovascular Problems: Yes (LONG QT INTERVAL) Diabetes: No Diminished Hearing: No Endocrine: No Gastrointestinal Disorders: Yes (CELIAC DISEASE) Genitourinary: Yes (KIDNEY REFLUX, MULTIPLE STONES; NEUROCYSTIC BLADDER) Headaches: Yes (migraines) Hepatitis: No Hiatal Hernia: No Hypertension: Yes Immune Disorder: No Kidney Stones: Yes Musculoskeletal: Yes (LEG TREMORS) Neurologic: Yes (MIGRAINES) Psychiatric: Yes (ANXIETY) Reproductive: No Respiratory: No Immunizations Current: Yes Thyroid Disease: Yes (Hypo-) ?: Not LMP: has IUD Past Surgical History Abdominal Surgery: Yes (CHOLECYSTECTOMY, APPENDECTOMY) AICD: No Appendectomy: Yes Body Medical Devices: IUD Cardiac Surgery: No Cholecystectomy: Yes Ear Surgery: No Endocrine Surgery: No Eye Surgery: No Genitourinary Surgery: Yes (URETHRAL DILATION, LITHOTRIPSY) Gynecologic Surgery: No Joint Replacement: No Neurologic Surgery: Yes (interstim ) Oral Surgery: Yes ([place] teeth ) Pacemaker: No Thoracic Surgery: No Other Surgery: Yes Social History Alcohol Use: No Tobacco Use: No Substance Use: No Allergies-Medications (Allergen,Severity, Reaction): Coded Allergies: povidone-iodine (Verified Allergy, Severe, BLISTER, 06/20/17) soap (Verified Allergy, Severe, BLISTER, 06/20/17) Sulfa (Sulfonamide Antibiotics) (Verified Allergy, Unknown, VOMITING, 06/20) hydrocodone (Verified Allergy, Unknown, HIVES, 06/20/17) sumatriptan (Verified Allergy, Unknown, RESP, 06/20/17) zolpidem (Verified Allergy, Unknown, VOMITING, 06/20/17) Reported Meds & Prescriptions Reported Meds & Active Scripts Active Robaxin (Methocarbamol) 500 Mg Tab 500 Mg PO TID Allopurinol 300 Mg Tab 300 Mg PO DAILY Reported Buspirone (Buspirone HCl) 15 Mg Tab 15 Mg PO TID PRN Synthroid (Levothyroxine Sodium) 300 Mcg Tab 300 Mcg PO 6X WK B-12 Compliance Inj (Cyanocobalamin) 1,000 Mcg/Ml Kit 1,000 Mcg IM Q30D Review of Systems Except as stated in HPI: all other systems reviewed are Neg Physical Exam Narrative GENERAL: Alert female in no distress SKIN: Warm and dry. HEAD: Normocephalic. EYES: No scleral icterus. No injection or drainage. NECK: Supple, trachea midline. No JVD or lymphadenopathy. CARDIOVASCULAR: Regular rate and rhythm without murmurs, gallops, or rubs. RESPIRATORY: Breath sounds equal bilaterally. No accessory muscle use. GASTROINTESTINAL: Abdomen soft, non-tender, nondistended. MUSCULOSKELETAL: No cyanosis, or edema. Right upper extremity: Tenderness to the anterior posterior aspect of the shoulder. No deformity. 2+ distal pulses. Normal sensation. Brisk cap refill. Data Data Last Documented VS Vital Signs Date Time Temp Pulse Resp B/P (MAP) Pulse Ox O2 Delivery O2 Flow Rate FiO2 06/20/17 16:58 Room Air 06/20/17 16:53 98.5 90 16 152/72 (98) 99 Orders Orders Shoulder, Limited(2vws) (06/20/17 ) Splint Or Brace Apply/Monitor (06/20/17 18:57) MDM Medical Decision Making Medical Screen Exam Complete: Yes Emergency Medical Condition: Yes Differential Diagnosis Strain/sprain, fracture, dislocation Narrative Course 31-year-old female here with nontraumatic right shoulder pain 2 days. Patient reports increasing pain and decreased range of motion. Her physical exam is reassuring. Extremities neurovascular intact. There is no deformity. She has tenderness of the right trapezius muscle and soft tissue of the shoulder. X- ray negative for fracture. Patient will be put in a sling. Given short dose of muscle relaxers and instructed to follow-up with her primary doctor.. Diagnosis Primary Impression: Shoulder pain Qualified Codes: M25.511 - Pain in right shoulder Referrals: Orthopedist Primary Care Physician Scripts Methocarbamol (Robaxin) 500 Mg Tab 500 MG PO TID for Muscle Spasm, #15 TAB 0 Refills Prov: Mariela Liz 06/20/17 Disposition: 01 DISCHARGE HOME Condition: Stable Mariela Liz Jun 20, 2017 17:26
--- NOTE | 2017-06-20 18:47 | RADRPT ---
EXAM DATE/TIME: 06/20/2017 18:11 [facility] COMPARISON: No previous studies available for comparison. INDICATIONS : Right shoulder pain, no known injury, has increasing pain and limited ROM MEDICAL HISTORY : None. SURGICAL HISTORY : None. ENCOUNTER: Initial ACUITY: 2 days PAIN SCORE: 7/10 LOCATION: Right Shoulder FINDINGS: Two view examination of the right shoulder demonstrates no evidence of fracture or dislocation. The glenohumeral and acromioclavicular joints are maintained. Bony mineralization is normal. CONCLUSION: Unremarkable limited examination of the right shoulder. Maximino Murphy MD on June 20, 2017 at 18:44 Board Certified Radiologist. This report was verified electronically.
[2017-06-20] MEDS ORDERED: ROBA500T PO (18:57)
== END 2017-06-20 19:07 | disposition home or self-care (01) ==
LOC: PHEFT 16:32
DX: M25.511 Pain in right shoulder (principal); I10 Essential (primary) hypertension; E07.9 Disorder of thyroid, unspecified; F41.8 Other specified anxiety disorders; Z86.2 Personal history of diseases of the blood and blood-forming organs and certain disorders involving the immune mechanism; Z86.79 Personal history of other diseases of the circulatory system; Z87.19 Personal history of other diseases of the digestive system; Z87.448 Personal history of other diseases of urinary system; Z87.39 Personal history of other diseases of the musculoskeletal system and connective tissue; Z86.69 Personal history of other diseases of the nervous system and sense organs
CPT/HCPCS: 73030; 99283

== ENCOUNTER 2017-10-29 10:33 | Observation (INO) | payer MEDICARE, MEDICAID ==
[~2017-10-29] VITALS: Ht 167.6 cm; Wt 141.8 kg
[~2017-10-29 10:33] MED LIST changes: -CIPR-9 PO; -LEVO.2 PO; -REGL10TA5 PO; +ROBA500T PO; +TAMS5CAP PO; +VITA50TA30 PO; -ZOFR4TAB PO
[2017-10-29] MEDS ORDERED: VITA1000 PO (11:33)
[2017-10-29] MEDS ORDERED: METOPROLOL TARTRATE 25 MG TAB PO PRN (11:45)
[2017-10-29] MEDS ORDERED: SODIUM CHLORID 0.9% 500 ML IV PRN (11:45)
[2017-10-29] MEDS ORDERED: CHLORHEXIDINE GLUCONATE 2 % 1 PACK (2 CLOTHS) TOPICAL PRN (11:45)
[2017-10-29] MEDS ORDERED: LACTATED RINGER'S 1000 ML IV PRN (11:45)
[2017-10-29] MEDS ORDERED: FAMOTIDINE 20 MG/2 ML VIAL ONE (11:50)
[2017-10-29] MEDS ORDERED: MIDAZOLAM HCL 5 MG/ML VIAL (1 ML) ONE (11:50)
[2017-10-29] MEDS ORDERED: DESMOPRESSIN IV ONE (12:00)
[2017-10-29] MEDS ORDERED: SODIUM CHLORIDE 0.9% IV ONE (12:00)
[2017-10-29] MEDS ORDERED: ceFAZolin INJ 1,000 MG VIAL ONE (12:30)
[2017-10-29] MEDS ORDERED: SODIUM CHLORIDE 0.9% INJ 100 ML ONE (12:30)
[2017-10-29] MEDS ORDERED: BUPIVACAINE/EPINEPHRINE 0.5% PF 30 ML VIAL ONE ×2 (12:36→12:58)
[2017-10-29] MEDS ORDERED: DEXAMETHASONE SOD PHOS 4 MG/ML VIAL ONE (12:37)
[2017-10-29 12:40] VITALS: PULSE 113
[2017-10-29 13:00] VITALS: PULSE 109
[2017-10-29 17:04] VITALS: PULSE 110
[2017-10-29] MEDS ORDERED: MORPHINE SULFATE 4 MG/ML INJ ONE (17:12)
[2017-10-29] MEDS ORDERED: ACETAMINOPHEN/CODEINE 300 MG/30 MG TAB PO PRN (18:00)
[2017-10-29] MEDS ORDERED: DEXT 5%-NACL 0.45% 1000 ML INJ 1,000 ML IV SCH (18:00)
[2017-10-29 20:00] VITALS: BP 179/77; PULSE 89; RESP 20; TEMP 97; O2SAT 96
[2017-10-29] MEDS ORDERED: CYANOCOBALAMIN 1000 MCG/ML VIAL IM SCH (20:00)
[2017-10-29] MEDS: ceFAZolin 1,000 MG/NS 100 ML IV SCH ×2 (20:53)
[2017-10-29] MEDS ORDERED: TAMSULOSIN HCL 0.4 MG CAP PO SCH (21:00)
[2017-10-29] MEDS: MORPHINE SULFATE 4 MG/ML INJ IM PRN (23:27)
[2017-10-30] VITALS: BP 124/78; PULSE 102; RESP 22; TEMP 97.5; O2SAT 94
[2017-10-30] MEDS: ceFAZolin 1,000 MG/NS 100 ML IV SCH ×2 (05:46)
[2017-10-30] MEDS: MORPHINE SULFATE 4 MG/ML INJ IM PRN (05:48)
[2017-10-30] MEDS ORDERED: LEVOTHYROXINE SODIUM 150 MCG TAB PO SCH (06:00)
[2017-10-30 06:34] LABS: HEMATOCRIT 34.5 % (35.0-46.0); HEMOGLOBIN 11.6 GM/DL (11.6-15.3)
[2017-10-30 07:30] VITALS: BP 111/55; PULSE 88; RESP 14; TEMP 97.8; O2SAT 94
[2017-10-30] MEDS ORDERED: CHOLECALCIFEROL (VIT D3) 1000 UNIT TAB PO SCH (09:00)
--- NOTE | 2017-10-30 09:41 | PD.CONS ---
HPI Service [facility] Hospitalists Consult Requested By Dr. Calderon. Reason for Consult Medical management Primary Care Physician Wally Phillips MD Diagnoses: (1) Right shoulder injury History of Present Illness This is a 31-year-old female patient with a known medical history of von Willebrand's, Nallely's thyroiditis who underwent a right shoulder Bankart procedure by orthopedic surgeon today, hospitalist team has been consulted for medical management. Supposedly last year patient had injured her right shoulder and underwent several repairs as well as medical management and eventually required the said procedure today. Patient follows with medical renewals specialist Dr. Llanes for her von Willebrand management. She does admit to a history of celiac disease. She also has a extensive history for an unspecified neuromuscular disease and is being seen up in [place]. Her Nallely's thyroiditis is controlled. Pain controlled with morphine and Percocet. Denies any recent illness including fever, chills, cough, shortness breath, abdominal pain, nausea, vomiting, diarrhea dysuria. Review of Systems Constitutional: DENIES: Fever, Chills Eyes: DENIES: Blurred vision, Diplopia Respiratory: DENIES: Cough, Shortness of breath Cardiovascular: DENIES: Chest pain, Palpitations Gastrointestinal: DENIES: Abdominal pain, Black stools, Bloody stools, Constipation, Diarrhea, Nausea, Vomiting Musculoskeletal: COMPLAINS OF: Joint pain (Right shoulder) Except as stated in HPI: all other systems reviewed are Neg Past Family Social History Allergies: Coded Allergies: gluten (Verified Allergy, Severe, 10/30/17) povidone-iodine (Verified Allergy, Severe, BLISTER, 06/20/17) soap (Verified Allergy, Severe, BLISTER, 06/20/17) Sulfa (Sulfonamide Antibiotics) (Verified Allergy, Unknown, VOMITING, 06/20) hydrocodone (Verified Allergy, Unknown, HIVES, 06/20/17) sumatriptan (Verified Allergy, Unknown, RESP, 06/20/17) zolpidem (Verified Allergy, Unknown, VOMITING, 06/20/17) Past Medical History Nallely's thyroiditis Lymphoma Willebrand's Celiac disease Past Surgical History Cholecystectomy Unspecified leg biopsy Appendectomy Multiple right shoulder repairs Orthopedic surgery as a child unspecified Reported Medications Active Reported Synthroid (Levothyroxine Sodium) 200 Mcg Tab 200 Mcg PO BRENNA Vitamin D-1000 (Cholecalciferol) 1,000 Unit Tab 1,000 Units PO DAILY Flomax (Tamsulosin HCl) 0.4 Mg Cap 0.4 Mg PO HS Synthroid (Levothyroxine Sodium) 300 Mcg Tab 300 Mcg PO 6X WK B-12 Compliance Inj (Cyanocobalamin) 1,000 Mcg/Ml Kit 1,000 Mcg IM Q30D Active Ordered Medications Current Medications Medications (Trade) Dose Ordered Sig/Gregoria Route Start Time Stop Time Status Last Admin Lactated Ringer's 1,000 ml @ 30 mls/hr Q24H PRN IV 10/29/17 11:45 11/01/17 11:44 10/29/17 11:40 Sodium Chloride 500 ml @ 30 mls/hr [id number] PRN IV 10/29/17 11:45 11/01/17 11:44 (Lopressor) 25 mg SNAGGER PRN PO 10/29/17 11:45 11/01/17 11:44 (Chlorhexidine 2% Cloth) 3 pack SNAGGER PRN TOPICAL 10/29/17 11:45 11/01/17 11:44 10/29/17 11:20 Dextrose/Sodium Chloride 1,000 ml @ 70 mls/hr [id number] IV 10/29/17 18:00 10/29/17 18:23 (Keflex) 500 mg BID PO 10/30/17 21:00 (Vitamin B12 Inj) 1,000 mcg Q30D IM 10/29/17 20:00 10/29/17 20:53 (Flomax) 0.4 mg HS PO 10/29/17 21:00 10/29/17 20:53 (Vitamin D3) 1,000 units DAILY PO 10/31/17 09:00 (Synthroid) 200 mcg Rollins@0600 PO 11/01/17 06:00 (Morphine Inj) 2 mg Q3H PRN IV PUSH 10/30/17 09:45 (Percocet 5-325 Mg) 1 tab Q4H PRN PO 10/30/17 09:45 (Percocet 5-325 Mg) 2 tab Q4H PRN PO 10/30/17 09:45 10/30/17 15:00 (Synthroid) 300 mcg MoTuWeThFrSa@0600 PO 10/31/17 06:00 Family History Maternal medical history significant for hypertension and SVT. Paternal medical history significant for hypothyroidism and bladder cancer. Social History Denies any tobacco, alcohol or illicit drug use. Physical Exam Vital Signs Vital Signs Date Time Temp Pulse Resp B/P (MAP) Pulse Ox O2 Delivery O2 Flow Rate FiO2 10/30/17 07:30 97.8 88 14 111/55 (73) 94 10/30/17 00:00 97.5 102 22 124/78 (93) 94 10/29/17 20:00 97.0 89 20 179/77 (111) 96 10/29/17 17:45 105 14 108/67 (81) 96 Nasal Cannula 3 10/29/17 17:30 107 14 97/62 (74) 97 Nasal Cannula 3 10/29/17 17:19 14 10/29/17 17:15 108 14 119/66 (83) 95 Nasal Cannula 3 10/29/17 17:04 110 10/29/17 17:04 98.6 110 14 110/63 (79) 92 Nasal Cannula 3 10/29/17 13:00 109 10/29/17 13:00 109 18 137/78 (97) 100 10/29/17 12:45 100 Nasal Cannula 2 10/29/17 12:40 113 10/29/17 11:36 98.3 89 18 154/100 (118) 99 Physical Exam GENERAL: Well-developed, well-nourished patient in NAD. Obese. SKIN: Warm and dry. No rash. HEAD: Normocephalic. Atraumatic. EYES: Pupils equal and round. No scleral icterus. No injection or drainage. ENT: No nasal bleeding or discharge. Mucous membranes pink and moist. NECK: Supple. Trachea midline. CARDIOVASCULAR: Regular rate and rhythm. S1, S2 noted. No murmur appreciated. RESPIRATORY: No accessory muscle use. Clear to auscultation. Breath sounds equal bilaterally. GASTROINTESTINAL: Abdomen soft, non-tender, nondistended. Normoactive bowel sounds x4. MUSCULOSKELETAL: No obvious deformities. Extremities without clubbing, cyanosis , or edema. Right shoulder in sling with dressing in place. NEUROLOGICAL: Awake and alert. No obvious cranial nerve deficits. Motor grossly within normal limits. 5/5 muscle strength in bilateral upper and lower extremities. Normal speech. PSYCHIATRIC: Appropriate mood and affect; insight and judgment normal. Laboratory Laboratory Tests Test 10/30/17 05:50 Hemoglobin 11.6 Hematocrit 34.5 Result Diagram: 10/30/17 0550 Assessment and Plan Problem List: (1) Right shoulder injury ICD Code: S49.91XA - Unspecified injury of right shoulder and upper arm, initial encounter Assessment and Plan Status post right shoulder Bankart procedure by orthopedic surgery. -Postop day #0. Pain control with morphine IV and Percocet. - Continue sling and dressing changes per orthopedic recommendations. History of hypothyroidism/Nallely's thyroiditis: Continue home medications. Patient is stable. Medical history stable. No further recommendations or input. Will sign off. Please reconsult if needed. Thank you for this consultation. Darcie Siegel Oct 30, 2017 09:41
[2017-10-30] MEDS ORDERED: MORPHINE SULFATE 4 MG/ML INJ IV PUSH PRN (09:45)
[2017-10-30] MEDS ORDERED: oxyCODONE/ACETAMINOPHEN 5 MG/325 MG TAB PO PRN (09:45)
[2017-10-30] MEDS: oxyCODONE/ACETAMINOPHEN 5 MG/325 MG TAB PO PRN ×2 (10:28→15:00)
[2017-10-30 10:38] LABS: CALCIUM 8.5 MG/DL (8.5-10.1)
[2017-10-30 10:39] LABS: BICARBONATE 23.3 MEQ/L (21.0-32.0)
[2017-10-30 10:42] LABS: CREATININE 0.7 MG/DL (0.50-1.00)
[2017-10-30 11:27] LABS: AUTOMATED NEUTROPHIL # 13.9 TH/MM3 (1.8-7.7); BASOPHIL % 0.1 % (0.0-2.0); HEMATOCRIT 35.8 % (35.0-46.0); HEMOGLOBIN 11.6 GM/DL (11.6-15.3); LYMPH % 6.5 % (9.0-44.0); MEAN CELL VOLUME 87.5 FL (80.0-100.0); MEAN CORPUSCULAR HEMOGLOBIN 28.3 PG (27.0-34.0); MEAN CORPUSCULAR HGB CONC 32.3 % (32.0-36.0); MEAN PLATELET VOLUME 9.7 FL (7.0-11.0); MONO % 3.2 % (0.0-8.0); MONOCYTE # 0.5 TH/MM3 (0-0.9); NEUT % 90.2 % (16.0-70.0); PLATELET COUNT 236 TH/MM3 (150-450); RED BLOOD COUNT 4.09 MIL/MM3 (4.00-5.30); WHITE BLOOD COUNT 15.4 TH/MM3 (4.0-11.0)
[2017-10-30 12:00] VITALS: BP 126/75; PULSE 80; RESP 18; TEMP 97.2; O2SAT 96
--- NOTE | 2017-10-30 12:32 | MP ---
cc: Saeed Barrow MD DATE OF OPERATION: 10/29/2017 LOCATION: Surgery is at [facility]. PREOPERATIVE DIAGNOSIS: Right shoulder recurrent subluxation/dislocation/anterior. POSTOPERATIVE DIAGNOSIS: Right shoulder recurrent subluxation/dislocation/anterior. PROCEDURE PERFORMED: Right shoulder Bankart procedure. PROCEDURE PERFORMED IN DETAIL: Informed consent was obtained. The patient was taken to the operating room and placed in the supine position on the operative table. She was administered a general anesthesia by Dr. Snow of the anesthesia department. The patient was placed in a beach chair position. She had received appropriate preoperative treatment by anesthesia for von Willebrand disease. The right shoulder had a sterile U drape and was prepped with alcohol, then hexachlorophene. Draping commenced with sterile towels about the shoulder. Split sheets stockinette was applied over the hand and forearm. This was wrapped with Coban. A sterile drape was cut and placed about the shoulder to drape off the field. An Ioban drape was not utilized ultimately for this purpose. At that time, a timeout was held and confirmed the patient was given a gram of Ancef prior to the operative procedure. A marking pen had been utilized preoperatively to estimate the anterior skin incision. At that time, the anterior axillary fold was identified and the anterior shoulder incision in the axillary fold was made. Skin and subcutaneous tissues were divided and bleeding was managed utilizing a Bovie. The cephalic vein and deltopectoral interval was identified. This was opened and the cephalic vein was retracted with the deltoid muscle. This exposed the clavipectoral fascia. The edge of the conjoined tendon was identified. The muscular fibers adjacent to the tendon were identified and retracted medially. Deltoid was retracted laterally to expose the subscapularis muscle. The undersurface of the subscapularis with the 2 vessels and nerve were identified. A dissection was carried down through the subscapularis tendon and these vessels were protected. The subscapularis was tagged at the inferior and superior regions and allowed to retract. This exposed the joint capsule, which was opened in a T fashion. Superior and inferior limbs were tagged. The humeral head did appear perched on the anterior rim of the glenoid. The Fukuda retractor was placed and a pickle fork was placed on the inner portion of the glenoid through the glenoid neck. At that time, utilizing the Bankart instruments, which included the scaphoid gouge, a curved spike and hand , 3 holes were made in the usual Bankart fashion. A #5 Mahajan needle had two #2 Ti-Cron sutures placed and 2 sutures were placed through each of the 3 holes in the glenoid and, at that time, the inferior hole which was at approximately the 5 o'clock position was brought through the inferior limb of the capsule. The middle hole was attached to both the inferior and superior limbs of the capsule and the superior was placed through the superior part of the capsule. At that time, the arm was placed in a position of reduction of the glenohumeral joint and approximately 5 degrees external rotation, as all of the sutures were tied down. Excess suture material was removed. One limb from the superior anchor was brought over to attach to the middle hole and likewise wound from the inferior was also attached to the middle hole. The stability appeared excellent. At that time, the subscapularis tendon was allowed to fall back to its normal position and was re-anchored utilizing 0 Vicryl stitches. The deltopectoral interval was then closed with 0 Vicryl in the subcutaneous tissue and the deep plane closed with 2-0 Vicryl in the superficial portion with 3-0 plain sutures, 4-0 nylon was utilized in the skin utilizing the type stitch. Steri-Strips, 4 x 4's, ABD and tape was applied. The patient was placed in a sling. She tolerated the procedure well, was then taken to the recovery room in stable condition. At the completion of the procedure, sponge counts, instrument counts and needle counts were correct. ESTIMATED BLOOD LOSS: 300 mL. MD CIARAN Ayala/ISIDRO , 05:47 PM , 06:36 PM
[2017-10-30] MEDS ORDERED: LEVO.2 PO (13:03)
[2017-10-30] MEDS ORDERED: CEPHALEXIN MONOHYDRATE 500 MG CAP PO SCH (21:00)
[2017-10-31] MEDS ORDERED: LEVOTHYROXINE SODIUM 150 MCG TAB PO SCH (06:00)
[2017-10-31] MEDS ORDERED: CHOLECALCIFEROL (VIT D3) 1000 UNIT TAB PO SCH (09:00)
[2017-11-01] MEDS ORDERED: LEVOTHYROXINE SODIUM 200 MCG TAB PO SCH (06:00)
== END 2017-10-30 16:40 | disposition home or self-care (01) ==
LOC: PHSDC 10:33 → PH3A 18:08
PROVIDERS: ADMIT Orthopaedic Surgery; ATTEND Orthopaedic Surgery
DX: M24.411 Recurrent dislocation, right shoulder (principal); D68.0 Von Willebrand disease; E06.3 Autoimmune thyroiditis; K90.0 Celiac disease; Z79.899 Other long term (current) drug therapy
CPT/HCPCS: 01630; 23455; 80048; 85014; 85018; 85025; 96360; 96372; G0378; J0690; J1100; J2250; J2270; J3420; J7120; J2597

== ENCOUNTER 2017-12-01 01:02 | Emergency (ER) | payer MEDICARE, MEDICAID ==
[~2017-12-01] VITALS: Ht 167.6 cm; Wt 147.0 kg
[~2017-12-01 01:02] MED LIST changes: -ALLO300T2 PO; -BUSP15TA PO; +LEVO.2 PO; -ROBA500T PO; +VITA1000 PO; -VITA50TA30 PO
[2017-12-01 01:07] VITALS: BP 150/86; PULSE 93; RESP 18; TEMP 98.4; O2SAT 97
[2017-12-01] MEDS ORDERED: SODIUM CHLOR 0.9% 1000 ML INJ 1,000 ML IV SCH (01:20)
[2017-12-01] MEDS ORDERED: SODIUM CHLORIDE 0.9% FLUSH 10 ML FLUSH IV FLUSH PRN (01:30)
[2017-12-01] MEDS ORDERED: MORPHINE SULFATE 4 MG/ML INJ IV PUSH ONE ×2 (01:30→02:30)
[2017-12-01] MEDS ORDERED: ONDANSETRON ODT 4 MG TAB PO ONE (01:30)
[2017-12-01] MEDS ORDERED: KETOROLAC TROMETHAMINE 30 MG/ML (IVP) VIAL IVP ONE (01:30)
--- NOTE | 2017-12-01 01:31 | PD ---
HPI Chief Complaint: Flank/Kidney Pain Time Seen by Provider: 01:12 Travel History International Travel<30 days: No Contact w/Intl Traveler<30days: No Traveled to known affect area: No History of Present Illness HPI The patient is a 32-year-old female who presents to the emergency department for right flank pain. The patient states she has passed 3 kidney stones over the last 3 weeks. Her primary physician sent her to have a an outpatient CT performed this morning that was performed at radiology [facility] imaging. The patient does not know the results. However, she was awakened from her sleep with right flank pain that radiates to the right groin. She also notes hematuria, nausea, vomiting, and significant pain. The patient does have a history of similar symptoms in the past secondary to passing kidney stones. The patient denies , states she has an IUD in place and has not had a menstrual cycle in several months. She denies any left lower quadrant abdominal pain or significant vaginal discharge or dysuria. Symptoms are moderate. PFSH Past Medical History Autoimmune Disease: Yes (Celiac, TMJ) Blood Disorders: Yes (vonwillebrand disease) Anxiety: Yes Depression: No Cancer: No Cardiovascular Problems: Yes (HX OF LONG QT INTERVAL) Diabetes: No Diminished Hearing: No Endocrine: No Gastrointestinal Disorders: Yes (CELIAC DISEASE) Genitourinary: Yes (KIDNEY REFLUX, MULTIPLE STONES; NEUROGENIC BLADDER) Headaches: Yes (migraines) Hepatitis: No Hiatal Hernia: No Hypertension: Yes Immune Disorder: No Kidney Stones: Yes Musculoskeletal: Yes (LEG TREMORS) Neurologic: Yes (MIGRAINES) Psychiatric: Yes (ANXIETY) Reproductive: No Respiratory: No Immunizations Current: Yes Thyroid Disease: Yes (HYPO) Past Surgical History Abdominal Surgery: Yes (CHOLECYSTECTOMY, APPENDECTOMY) AICD: No Appendectomy: Yes Body Medical Devices: IUD, NEUROSTIMULATOR BLADDER Cardiac Surgery: No Cholecystectomy: Yes Ear Surgery: No Endocrine Surgery: No Eye Surgery: No Genitourinary Surgery: Yes (URETHRAL DILATION, LITHOTRIPSY;BLADDER NEUROSTIMULATOR) Gynecologic Surgery: No Joint Replacement: No Neurologic Surgery: Yes (interstim ) Oral Surgery: Yes ([place] teeth ) Pacemaker: No Thoracic Surgery: No Other Surgery: Yes Social History Alcohol Use: No Tobacco Use: No Substance Use: No Allergies-Medications (Allergen,Severity, Reaction): Coded Allergies: gluten (Verified Allergy, Severe, 10/30/17) povidone-iodine (Verified Allergy, Severe, BLISTER, 06/20/17) soap (Verified Allergy, Severe, BLISTER, 06/20/17) Sulfa (Sulfonamide Antibiotics) (Verified Allergy, Unknown, VOMITING, 06/20) hydrocodone (Verified Allergy, Unknown, HIVES, 06/20/17) sumatriptan (Verified Allergy, Unknown, RESP, 06/20/17) zolpidem (Verified Allergy, Unknown, VOMITING, 06/20/17) Reported Meds & Prescriptions Reported Meds & Active Scripts Active Flomax (Tamsulosin HCl) 0.4 Mg Cap 0.4 Mg PO HS Percocet (Oxycodone-Acetaminophen) 10-325 mg Tab 1 Tab PO Q6H PRN Reported Synthroid (Levothyroxine Sodium) 200 Mcg Tab 200 Mcg PO THURSDAY Vitamin D-1000 (Cholecalciferol) 1,000 Unit Tab 1,000 Units PO DAILY Flomax (Tamsulosin HCl) 0.4 Mg Cap 0.4 Mg PO HS Synthroid (Levothyroxine Sodium) 300 Mcg Tab 300 Mcg PO 6X WK B-12 Compliance Inj (Cyanocobalamin) 1,000 Mcg/Ml Kit 1,000 Mcg IM Q30D Review of Systems Except as stated in HPI: all other systems reviewed are Neg General / Constitutional: No: Fever Cardiovascular: No: Chest Pain or Discomfort Respiratory: No: Shortness of Breath Gastrointestinal: Positive: Nausea, Vomiting, Abdominal Pain, No: Diarrhea Genitourinary: Positive: Hematuria, Flank Pain, No: Dysuria Hematologic/Lymphatic: Positive: Other (History of von Willebrand's disease) Physical Exam Narrative GENERAL: Awake, alert, pleasant 32-year-old female who appears her stated age and appears to be in moderate discomfort. SKIN: Focused skin assessment warm/dry. HEAD: Atraumatic. Normocephalic. EYES: No injection or drainage. ENT: No nasal bleeding or discharge. Mucous membranes pink and moist. NECK: Trachea midline. No JVD. CARDIOVASCULAR: Regular rate and rhythm. No murmur appreciated. RESPIRATORY: No accessory muscle use. Clear to auscultation. Breath sounds equal bilaterally. GASTROINTESTINAL: Abdomen soft, obese, no rebound tenderness. Negative Cervantes' s. Back: Mild right CVA tenderness. MUSCULOSKELETAL: No obvious deformities. No clubbing. No cyanosis. No edema. NEUROLOGICAL: Awake and alert. No obvious cranial nerve deficits. Motor grossly within normal limits. Normal speech. PSYCHIATRIC: Appropriate mood and affect; insight and judgment normal. Data Data Last Documented VS Vital Signs Date Time Temp Pulse Resp B/P (MAP) Pulse Ox O2 Delivery O2 Flow Rate FiO2 12/01/17 01:46 98 Room Air 12/01/17 01:07 98.4 93 18 Orders Orders Basic Metabolic Panel (Bmp) (12/01/17 01:20) Complete Blood Count With Diff (12/01/17:20) Urinalysis - C+S If Indicated (12/01/17:20) Iv Access Insert/Monitor (12/01/17:20) Ecg Monitoring (12/01/17:20) Oximetry (12/01/17:20) Morphine Inj (Morphine Inj) (12/01/17 01:30) Sodium Chlor 0.9% 1000 Ml Inj (Ns 1000 M (12/01/17 01:20) Sodium Chloride 0.9% Flush (Ns Flush) (12/01/17 01:30) Ketorolac Inj (Toradol Inj) (12/01/17 01:30) Ed Urine Pregnancytest Poc (12/01/17 01:20) Ondansetron Odt (Zofran Odt) (12/01/17 01:30) Labs Laboratory Tests Test 12/01/17 01:40 White Blood Count 7.7 TH/MM3 Red Blood Count 4.35 MIL/MM3 Hemoglobin 12.5 GM/DL Hematocrit 37.7 % Mean Corpuscular Volume 86.8 FL Mean Corpuscular Hemoglobin 28.8 PG Mean Corpuscular Hemoglobin Concent 33.2 % Red Cell Distribution Width 13.5 % Platelet Count 204 TH/MM3 Mean Platelet Volume 8.6 FL Neutrophils (%) (Auto) 70.8 % Lymphocytes (%) (Auto) 22.1 % Monocytes (%) (Auto) 4.3 % Eosinophils (%) (Auto) 2.3 % Basophils (%) (Auto) 0.5 % Neutrophils # (Auto) 5.5 TH/MM3 Lymphocytes # (Auto) 1.7 TH/MM3 Monocytes # (Auto) 0.3 TH/MM3 Eosinophils # (Auto) 0.2 TH/MM3 Basophils # (Auto) 0.0 TH/MM3 CBC Comment DIFF FINAL Differential Comment Urine Collection Type VOIDED Urine Color PINK Urine Turbidity CLOUDY Urine pH 7.5 Urine Specific Orange 1.010 Urine Protein NEG mg/dL Urine Glucose (UA) NEG mg/dL Urine Ketones NEG mg/dL Urine Occult Blood LARGE Urine Nitrite NEG Urine Bilirubin NEG Urine Urobilinogen 0.2 MG/DL Urine Leukocyte Esterase TRACE Urine RBC 100-200 /hpf Urine WBC 6-8 /hpf Urine Squamous Epithelial Cells 6-8 /hpf Urine Bacteria NONE /hpf Microscopic Urinalysis Comment CULT NOT INDICATED Urine Collection Time 0140 Blood Urea Nitrogen 7 MG/DL Creatinine 0.84 MG/DL Random Glucose 102 MG/DL Calcium Level 9.2 MG/DL Sodium Level 139 MEQ/L Potassium Level 3.8 MEQ/L Chloride Level 107 MEQ/L Carbon Dioxide Level 26.5 MEQ/L Anion Gap 6 MEQ/L Estimat Glomerular Filtration Rate 80 ML/MIN MDM Medical Decision Making Medical Screen Exam Complete: Yes Emergency Medical Condition: Yes Medical Record Reviewed: Yes Interpretation(s) CT of the abdomen and pelvis that was performed this morning at [facility] reveals multiple small nonobstructing right renal stones measuring up to 4 mm. Laboratory Tests Test 12/01/17 01:40 White Blood Count 7.7 TH/MM3 Red Blood Count 4.35 MIL/MM3 Hemoglobin 12.5 GM/DL Hematocrit 37.7 % Mean Corpuscular Volume 86.8 FL Mean Corpuscular Hemoglobin 28.8 PG Mean Corpuscular Hemoglobin Concent 33.2 % Red Cell Distribution Width 13.5 % Platelet Count 204 TH/MM3 Mean Platelet Volume 8.6 FL Neutrophils (%) (Auto) 70.8 % Lymphocytes (%) (Auto) 22.1 % Monocytes (%) (Auto) 4.3 % Eosinophils (%) (Auto) 2.3 % Basophils (%) (Auto) 0.5 % Neutrophils # (Auto) 5.5 TH/MM3 Lymphocytes # (Auto) 1.7 TH/MM3 Monocytes # (Auto) 0.3 TH/MM3 Eosinophils # (Auto) 0.2 TH/MM3 Basophils # (Auto) 0.0 TH/MM3 CBC Comment DIFF FINAL Differential Comment Urine Collection Type VOIDED Urine Color PINK Urine Turbidity CLOUDY Urine pH 7.5 Urine Specific Orange 1.010 Urine Protein NEG mg/dL Urine Glucose (UA) NEG mg/dL Urine Ketones NEG mg/dL Urine Occult Blood LARGE Urine Nitrite NEG Urine Bilirubin NEG Urine Urobilinogen 0.2 MG/DL Urine Leukocyte Esterase TRACE Urine RBC 100-200 /hpf Urine WBC 6-8 /hpf Urine Squamous Epithelial Cells 6-8 /hpf Urine Bacteria NONE /hpf Microscopic Urinalysis Comment CULT NOT INDICATED Urine Collection Time 0140 Blood Urea Nitrogen 7 MG/DL Creatinine 0.84 MG/DL Random Glucose 102 MG/DL Calcium Level 9.2 MG/DL Sodium Level 139 MEQ/L Potassium Level 3.8 MEQ/L Chloride Level 107 MEQ/L Carbon Dioxide Level 26.5 MEQ/L Anion Gap 6 MEQ/L Estimat Glomerular Filtration Rate 80 ML/MIN Differential Diagnosis Differential diagnosis includes nephrolithiasis, pyelonephritis, atypical appendicitis, ectopic , ovarian cyst, ovarian torsion. Narrative Course IV was established, labs are drawn and sent, and the patient was placed on cardiac telemetry monitoring and continuous pulse oximetry monitoring. The patient was administered Toradol, morphine, Zofran, and IV fluids. The patient appears to be having right flank pain, most likely secondary to the passage of a kidney stone. The patient just had a CT this morning which revealed multiple small nonobstructing renal stones. Therefore, I will not re-CT the patient I will treat her for probable ureterolithiasis. Bedside UA test was obtained. UA was sent to lab. The patient's CBC is unremarkable. BMP is unremarkable, creatinine is within normal limits. UA does reveal RBCs but only few WBCs, most likely secondary to blood. It does appear the patient has hematuria with flank pain, most likely passed a kidney stone. The patient be discharged home on Flomax and Percocet. She is advised to follow-up with her primary physician. Diagnosis Primary Impression: Nephrolithiasis Patient Instructions: General Instructions Additional Instructions: Medications as directed. Follow-up with your primary physician. Return if symptoms worsen or progress. Please provide the patient a copy of her labs at discharge. Med/Other Pt SpecificInfo: Prescription(s) given Scripts Tamsulosin (Flomax) 0.4 Mg Cap 0.4 MG PO HS for Manage Prostate Problems, #7 CAP 0 Refills Prov: Karl Harper MD 12/01/17 Oxycodone-Acetaminophen (Percocet) 10-325 mg Tab 1 TAB PO Q6H Y for PAIN, #12 TAB 0 Refills Prov: Karl Harper MD 12/01/17 Disposition: 01 DISCHARGE HOME Condition: Stable Karl Harper MD December 01, 2017 01:31
[2017-12-01 01:46] VITALS: O2SAT 98
[2017-12-01 01:49] LABS: BILIRUBIN, URINE NEG (NEG); BLOOD, URINE LARGE (NEG); GLUCOSE,URINE NEG (NEG); KETONE, URINE NEG (NEG); NITRITE,URINE NEG (NEG); PH, URINE 7.5 (5.0-8.5); URINE LEUKOCYTE ESTERASE TRACE (NEG)
[2017-12-01 01:50] LABS: AUTOMATED NEUTROPHIL # 5.5 TH/MM3 (1.8-7.7); BASOPHIL % 0.5 % (0.0-2.0); EOSINOPHIL # 0.2 TH/MM3 (0-0.4); EOSINOPHIL % 2.3 % (0.0-4.0); HEMATOCRIT 37.7 % (35.0-46.0); HEMOGLOBIN 12.5 GM/DL (11.6-15.3); LYMPH % 22.1 % (9.0-44.0); LYMPHOCYTE # 1.7 TH/MM3 (1.0-4.8); MEAN CELL VOLUME 86.8 FL (80.0-100.0); MEAN CORPUSCULAR HEMOGLOBIN 28.8 PG (27.0-34.0); MEAN CORPUSCULAR HGB CONC 33.2 % (32.0-36.0); MEAN PLATELET VOLUME 8.6 FL (7.0-11.0); MONO % 4.3 % (0.0-8.0); MONOCYTE # 0.3 TH/MM3 (0-0.9); NEUT % 70.8 % (16.0-70.0); PLATELET COUNT 204 TH/MM3 (150-450); RED BLOOD COUNT 4.35 MIL/MM3 (4.00-5.30); RED CELL DISTRIBUTION WIDTH 13.5 % (11.6-17.2); WHITE BLOOD COUNT 7.7 TH/MM3 (4.0-11.0)
[2017-12-01 01:55] LABS: URINE COLOR PINK (YELLW/STRAW)
[2017-12-01 01:56] LABS: RBC, URINE 100-200 /hpf (0-3)
[2017-12-01 02:01] LABS: BICARBONATE 26.5 MEQ/L (21.0-32.0); CALCIUM 9.2 MG/DL (8.5-10.1)
[2017-12-01 02:04] LABS: CREATININE 0.84 MG/DL (0.50-1.00)
[2017-12-01] MEDS ORDERED: TAMS5CAP PO ×2 (02:15→02:19)
[2017-12-01] MEDS ORDERED: PERC10TA27 PO (02:15)
[2017-12-01 02:46] VITALS: BP 145/85; TEMP 98.6
== END 2017-12-01 02:48 | disposition home or self-care (01) ==
LOC: PHED 01:02
DX: N20.0 Calculus of kidney (principal); D68.0 Von Willebrand disease; F41.9 Anxiety disorder, unspecified; K90.0 Celiac disease; I10 Essential (primary) hypertension
CPT/HCPCS: 80048; 81001; 84703; 85025; 96361; 96374; 96375; 96376; 99284; J1885; J2270; J7030

== ENCOUNTER 2018-07-14 23:56 | Inpatient (IN) ==
--- NOTE | 2018-07-15 00:27 | ED ---
HPI General Chief complaint: Eye Problems Stated complaint: Transferred for testing from [facility] Time Seen by Provider: 07/15/18 00:14 Source: patient Mode of arrival: ambulatory Limitations: no limitations History of Present Illness HPI Narrative: 32-year-old female presents to the emergency department at recommendation of treating physician at [facility] to undergo MRI of the brain and orbits as the imaging device at the [facility] was not able to accommodate the patient and she has an indwelling neurostimulator. Patient had initially been evaluated at [facility] at the recommendation of her office correspondent for new visual disturbance affecting the peripheral vision of the left eye. Patient noted to have a dark spot in her visual field affecting the left lower quadrant of the left eye. Patient also noted to have discomfort with movement of the eye. 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 Patient is followed by Dr. Dobbs her office correspondent; patient has been seen within the past [address] Her her local neurologist and has been evaluated at [facility] neurology within the past 3 months for her hemiplegic migraines. Patient states she is not having typical migraine symptoms or having a headache that would remind her of her migraine. Also patient has not had any recent febrile illness or respiratory illness and has had no evidence of a sudden onset thunderclap or worst ever headache. Patient said no change in her medications. Patient was seen by her office correspondent today and did have a dilated eye exam. Patient does have some residual effects of the ophthalmoplegic agent. Patient voicing no other concerns or complaints. chief complaint: Reports eye pain and vision change Onset (ago): day(s) (onset Thursday) Onset description: gradual Duration: constant and progressively worsening Location: Reports left eye Eye Symptoms: Reports pain and decreased vision (left lower outer quadrant vision impairment, "dark spot"; dilated eye exam today by her ophthalmolgist, Dr Dobbs, that sent her to the ED for MR studies) Place: home Mechanism: none Severity: moderate If Pain, Quality: aching Context: Reports other (orbital myositis); Denies recent URI, sore throat, history of glaucoma, recent eye procedure, contact lens use and trauma Associated symptoms: Reports headache (mild not sudden onset thunderclap or worst ever and not her typical migraine); Denies neck pain, nausea/vomiting, cough, rhinorrhea, fever, shortness of breath, numbness and weakness Treatments Prior to Arrival: Reports none (Patient has just been evaluated extensively in the emergency department at [facility] patient was sent here to [facility] specifically to undergo MRI that is compatible with patient having indwelling spinal stimulator.) Related Data Patient tetanus UTD: No Home Medications Medication Instructions Recorded Confirmed buspirone 15 mg PO BID 01/17/18 07/15/18 cholecalciferol (vitamin D3) 1,000 unit PO DAILY 01/17/18 07/15/18 [Vitamin D3] levothyroxine [Synthroid] 300 mcg PO DAILY 01/17/18 07/15/18 indomethacin [Indocin] 25 mg PO BID 02/26/18 07/15/18 ketorolac 30 mg IM Q6H 02/26/18 07/15/18 levothyroxine 200 mcg PO DAILY 02/26/18 07/15/18 naratriptan [Amerge] 2.5 mg PO Q4H PRN 02/26/18 07/15/18 prochlorperazine [Compazine] 25 mg TN Q12H PRN 02/26/18 07/15/18 lamotrigine 100 mg PO DAILY 07/14/18 07/15/18 metoprolol tartrate 25 mg PO BID 07/14/18 07/15/18 oxycodone 5 mg PO DAILY PRN 07/14/18 07/15/18 Allergies Allergy/AdvReac Type Severity Reaction Status Date / Time gluten Allergy Severe Gastrointestinal Verified 07/15/18 00:30 Upset povidone-iodine Allergy Severe BLISTER Verified 07/15/18 00:30 soap Allergy Severe BLISTER Verified 07/15/18 00:30 hydrocodone Allergy Unknown HIVES Verified 07/15/18 00:30 Sulfa (Sulfonamide Allergy Unknown VOMITING Verified 07/15/18 00:30 Antibiotics) sumatriptan Allergy Unknown RESP Verified 07/15/18 00:30 zolpidem Allergy Unknown VOMITING Verified 07/15/18 00:30 Review of Systems ROS: all other systems reviewed are negative [facility] Medical History Medical History Anxiety (Acute) Celiac disease (Acute) Hypothyroidism (Acute) Kidney stones (Acute) Neurogenic bladder (Acute) Von Willebrand disease (Acute) [place] teeth removed (Acute) Surgical History Surgical History H/O knee surgery (Acute) H/O shoulder surgery (Acute) History of cholecystectomy (Acute) Hx of appendectomy (Acute) Social History Social History Substance History: No History of Abuse Second Hand Smoke Exposure: No Smoking Status: Never smoker How Often Do You Have a Drink Containing Alcohol: Monthly or less Exam Narrative Exam Narrative: GENERAL: Well-nourished, well-developed patient. SKIN: Focused skin assessment warm/dry. HEAD: Normocephalic. EYES: No scleral icterus. No injection or drainage. No papilledema by funduscopic exam. NECK: Supple, trachea midline. No JVD or lymphadenopathy. CARDIOVASCULAR: Regular rate and rhythm without murmurs, gallops, or rubs. RESPIRATORY: Breath sounds equal bilaterally. No accessory muscle use. GASTROINTESTINAL: Abdomen soft, non-tender, nondistended. MUSCULOSKELETAL: No cyanosis, or edema. BACK: Nontender without obvious deformity. No CVA tenderness. Course Initial Documented Vital Signs Temperature 98.8 F 07/15/18 00:01 Pulse Rate 85 07/15/18 00:01 Respiratory Rate 18 07/15/18 00:01 Blood Pressure 136/83 07/15/18 00:01 Pulse Oximetry 96 07/15/18 00:01 Last Documented Vital Signs Temperature 98.8 F 07/15/18 00:01 Pulse Rate 83 07/15/18 02:13 Respiratory Rate 18 07/15/18 02:13 Blood Pressure 111/65 07/15/18 02:13 Pulse Oximetry 96 07/15/18 02:13 Medical Decision Making [facility] Narrative Medical decision making narrative: Patient was extensive past medical history noted to have visual disturbance since Thursday was evaluated by her office correspondent Dr. Dobbs earlier today around noon with concern for possible MS and sent specifically to the emergency department for MRI of the brain and the orbits with and without contrast. Patient went initially to [facility] was identified that the study could not be performed at that location workup at that time revealed no acute findings other than elevated TSH and patient has known thyroid dysfunction but CBC is automated differential was within normal range and complete metabolic panel was grossly within normal limits except mild elevation of creatinine of 1.02. Patient is not . And patient was sent here specifically to have imaging performed. Patient received Solu-Medrol 125 mg IV while at [facility] prior to being sent to p.o. for MR studies My has been informed the patient has arrived for imaging study. IV access reobtained specimens are collected as she just had them done within the past several hours at [facility] an MRI of the brain with and without contrast and MRI of the orbits with and without contrast has been ordered. Patient does note that she has history of claustrophobia and require preprocedural sedation with Ativan 1 mg IV discussed with Dr Phillips --recommends admit for iv solumedrol and possible optic neuritis; discussed with Dr Austin Medical Screen Exam Complete: Yes Emergency Medical Condition: Yes Differential Diagnosis Differential Diagnosis: Visual disturbance, CVA MS orbital myositis optic neuritis ocular migraine Medical Records Medical records reviewed: Yes I reviewed the patient's medical records. Lab Data Lab results reviewed: Yes I reviewed the patient's lab results. Lab results narrative: labs collected @19:50 [facility] reviewed Imaging Data Radiologist's impression: Head MRI 07/15/18 00:14 CONCLUSION: 1. No intracranial abnormality. The cause of the patient's left thigh blurred vision is not seen. 2. Sinus disease. Orbit MRI 07/15/18 00:17 CONCLUSION: 1. The orbits appear normal. 2. Sinus disease. Discharge Plan Discharge Disposition Patient Disposition: ED Admit(ED Internal Use Only) Discharge Condition Condition: Stable Discharge Order Discharge Orders: ED Use Only Admit Order (Routine); Ordered 07/15/18 Ordered By: Sadia Gallegos Discharge Details Diagnosis: Optic neuritis Physicians Team ED Provider: Sadia Gallegos Primary Care Provider: Wally Phillips Attending Provider: Amy Austin Other Providers: Saeed Copeland ED Status: Admitted Patient
[2018-07-15] MEDS ORDERED: Gadobutrol PF 7.5 MMOL/7.5 ML Vial (for RAD) IV.SIG ONE (01:24)
--- NOTE | 2018-07-15 02:16 | MR ---
EXAM DATE: 07/15/2018 1:51 AM EST AGE/SEX: 32 years / Female INDICATIONS: . Left eye blurred vision. CLINICAL DATA: This is the patient's initial encounter. Patient reports that signs and symptoms have been present for 3 days and indicates a pain score of 0/10. MEDICAL/SURGICAL HISTORY: . Von Willebrand's Appendectomy. Cholecystectomy. Right knee. COMPARISON: No prior exams available for comparison. TECHNIQUE: Multiplanar, multisequence examination of the brain was performed without and with 13 ml G adavist (gadobutrol) contrast as a single exam dose. FINDINGS: Cerebrum: The ventricles are normal for age. No evidence of midline shift, mass lesion, hemorrhage or acute infarction. No extraaxial fluid collections are seen. The pituitary gland and suprasellar cistern are normal in configuration. White Matter: No significant signal abnormalities are seen in the white matter. Posterior Fossa: The cerebellum and brainstem are intact. The 4th ventricle is midline. The cerebel lopontine angle is unremarkable. The cerebellar tonsils are normal in position. Diffusion Imaging: No focal areas of restricted diffusion are seen. No evidence of acute infarction . Extracranial: The visualized portions of the orbits are unremarkable. There is left frontal, left an terior and posterior ethmoid, right anterior ethmoid, and left maxillary sinus disease. Post Contrast: No abnormal areas of parenchymal or dural enhancement. No evidence of blood-brain ba rrier breakdown. CONCLUSION: 1. No intracranial abnormality. The cause of the patient's left thigh blurred vision is not seen. 2. Sinus disease. Electronically signed by: Wally Barber MD Board Certified Radiologist 07/15/2018 2:14 AM EST
--- NOTE | 2018-07-15 02:18 | MR ---
EXAM DATE: 07/15/2018 1:53 AM EST AGE/SEX: 32 years / Female INDICATIONS: Left eye blurred vision. Black spots. Optic neuritis. CLINICAL DATA: This is the patient's initial encounter. Patient reports that signs and symptoms have been present for 3 days and indicates a pain score of 0/10. MEDICAL/SURGICAL HISTORY: . Von Willebrand's. Cholecystectomy. Appendectomy. COMPARISON: No prior exams available for comparison. TECHNIQUE: Multiplanar, multisequence MRI examination was performed without contrast and after intra venous administration of 13 ml Gadavist (gadobutrol) contrast and without contrast as single exam dos e. FINDINGS: Preseptal: The preseptal soft tissues are normal thickness. Globes: Normal shape without wall thickening. The lens is grossly intact. Extraocular Muscles: Symmetric and normal thickness. Orbital Sales: Intact. The greater wing of the sphenoid is intact. Optic Nerves: Normal size without abnormal areas of enhancement. The optic canal is not enlarged. The retroconal fat is normal in appearance. Lacrimal Glands: No evidence of mass. Retroapical Region: The optic chiasm is grossly intact. The visualized portion of the cavernous sin us and brainstem is intact. Sinuses: There is left frontal, left anterior posterior ethmoid, anterior right ethmoid, and left ma xillary sinus disease. CONCLUSION: 1. The orbits appear normal. 2. Sinus disease. Electronically signed by: Wally Barber MD Board Certified Radiologist 07/15/2018 2:17 AM EST
[2018-07-15] MEDS ORDERED: Acetaminophen 325 MG Tablet PO PRN (03:37)
[2018-07-15] MEDS: MethylPREDNISolone Sod Suc Inj 250 MG in Sodium Chlor 0.9% Inj 100 ML IV.SIG SCH ×5 (04:07→22:13)
[2018-07-15] MEDS: Enoxaparin Inj 40 MG/0.4 ML Syringe SQ SCH (08:20)
--- NOTE | 2018-07-15 10:06 | P.HPIM ---
History of Present Illness Primary Care Physician: Wally Phillips Chief Complaint: Patient sent here by property field adjuster for IV steroids History of Present Illness: 32-year-old female with known history of celiac disease, hypothyroidism, migraine cephalgia, atonic bladder, von Willebrand's disease who presented to the hospital at the request of her property field adjuster for IV steroids. Patient indicates that 2 weeks ago she started noticing visual problems with her left eye with blurriness of her left eye and pain. She did go to her property field adjuster to get a dilated eye exam and notified her that she had some inflammation of her optic nerve and that they are going to keep an eye on it. Patient states that her eye pain did not get any better, visual acuity did not improve and she developed a black spot in the middle of her vision. She went to her property field adjuster again emergent emmanuel and had another evaluation and they told her to go to the hospital for IV steroids. Patient indicates that she go to the emergency department and evaluation for the optic neuritis or optic myositis was to have an MRI performed. However the MRI was not available that can do her study because of her bladder stimulator. Arrangements were made for the patient to come to [place] to have an MRI performed and IV steroids. MRI was done which was unremarkable. Patient has started IV steroids and she indicates that the pain around her eye is much improved, however she still having visual difficulties with acuity as well as black spot in her vision. Otherwise patient denies any other symptoms. Inpatient Certification Inpatient Certification: I certify that the inpatient services were ordered in accordance with Medicare regulations governing the order. This includes certification that hospital inpatient services are reasonable and necessary and in the case of services not specified as inpatient-only under 42 CFR 419.22(n), that they are appropriately provided as inpatient services in accordance to with the 2-midnight benchmark under 43 CFR 412.3(e) Estimated Total Length of Stay (Days): 2 Plans for Post Hospital Care: Home Review of Systems Review of Systems: all other systems reviewed are negative Eyes: Reports blind spots, Reports blurry vision and Reports change in vision PMFSH Medical History Medical History Anxiety (Acute) Celiac disease (Acute) Hypothyroidism (Acute) Kidney stones (Acute) Neurogenic bladder (Acute) Von Willebrand disease (Acute) [place] teeth removed (Acute) Surgical History Surgical History H/O knee surgery (Acute) H/O shoulder surgery (Acute) History of cholecystectomy (Acute) Hx of appendectomy (Acute) Social History Social History Substance History: No History of Abuse Second Hand Smoke Exposure: No Smoking Status: Never smoker How Often Do You Have a Drink Containing Alcohol: Monthly or less Immunization History Tetanus Immunization: >5 Years Medications and Allergies Allergies Allergy/AdvReac Type Severity Reaction Status Date / Time gluten Allergy Severe Gastrointestinal Verified 07/15/18 00:30 Upset povidone-iodine Allergy Severe BLISTER Verified 07/15/18 00:30 soap Allergy Severe BLISTER Verified 07/15/18 00:30 hydrocodone Allergy Unknown HIVES Verified 07/15/18 00:30 Sulfa (Sulfonamide Allergy Unknown VOMITING Verified 07/15/18 00:30 Antibiotics) sumatriptan Allergy Unknown RESP Verified 07/15/18 00:30 zolpidem Allergy Unknown VOMITING Verified 07/15/18 00:30 Home Medications Medication Instructions Recorded Confirmed Type buspirone 15 mg PO BID 01/17/18 07/15/18 History cholecalciferol (vitamin D3) 1,000 unit PO DAILY 01/17/18 07/15/18 History [Vitamin D3] levothyroxine [Synthroid] 300 mcg PO DAILY 01/17/18 07/15/18 History indomethacin [Indocin] 25 mg PO BID 02/26/18 07/15/18 History ketorolac 30 mg IM Q6H 02/26/18 07/15/18 History levothyroxine 200 mcg PO DAILY 02/26/18 07/15/18 History naratriptan [Amerge] 2.5 mg PO Q4H PRN 02/26/18 07/15/18 History prochlorperazine [Compazine] 25 mg MS Q12H PRN 02/26/18 07/15/18 History lamotrigine 100 mg PO DAILY 07/14/18 07/15/18 History metoprolol tartrate 25 mg PO BID 07/14/18 07/15/18 History oxycodone 5 mg PO DAILY PRN 01/02/19 01/03/19 History Active Medications: Active Medications Acetaminophen (Tylenol) 650 mg PO Q4H PRN PRN Reason: Temp > 100.4 Enoxaparin Sodium (Lovenox Inj) 40 mg SQ Q24H [facility] Last Admin: 07/15/18 08:20 Dose: 40 mg Methylprednisolone Sodium Succinate 250 mg/ Sodium Chloride 104 mls @ 200 mls/ hr IV.SIG QID [facility] Last Admin: 07/15/18 09:27 Dose: 200 mls/hr Lamotrigine (Lamictal) 100 mg PO HS [facility] Levothyroxine Sodium (Synthroid) 200 mcg PO DAILY [facility] Metoprolol Tartrate (Lopressor) 25 mg PO BID [facility] Non-Formulary Medication (Levothyroxine [Synthroid]) 300 mcg PO DAILY [facility] Non-Formulary Medication (Buspirone [Buspirone]) 15 mg PO BID PRN PRN Reason: ANXIETY AND/OR INSOMNIA Ondansetron HCl (Zofran Inj) 4 mg IV.PUSH Q6H PRN PRN Reason: NAUSEA OR VOMITING Pantoprazole Sodium (Protonix) 40 mg PO DAILY [facility] Last Admin: 07/15/18 08:23 Dose: 40 mg Sodium Chloride (Ns Flush) 2 ml IV.FLUSH BID [facility] Last Admin: 07/15/18 08:23 Dose: 2 ml Sodium Chloride (Ns Flush) 2 ml IV.FLUSH PRN PRN PRN Reason: FLUSH AFTER USING IV ACCESS Physical Exam Vital signs: Last Vital Signs Temp 97.2 F L 07/15/18 06:05 Pulse 64 07/15/18 06:05 Resp 20 07/15/18 06:05 BP 119/76 07/15/18 06:05 Pulse Ox 93 L 07/15/18 06:05 Intake & Output 07/13/18 07/14/18 07/15/18 07/16/18 06:59 06:59 06:59 06:59 Intake Total 104 / 104 Balance 104 / 104 Weight 149 kg Narrative: GENERAL: Well-developed, morbidly obese with BMI 53, in no acute distress. alert and orientated HEENT: Head is normocephalic without any lesions or masses noted. Facial features are symmetric. Eyes: Pupils equal round reactive to light. Extraocular muscles are intact. Conjunctivae were clear. Patient is continuously squinting her left eye oropharyngeal: Pharynx without any erythema edema. Tongue is midline without deviation. Buccal mucosa is moist without any masses or lesions NECK: Supple without any masses. Trachea midline no deviation. No JVD, no bruits are appreciated CARDIAC: Regular rhythm, regular rate. S1/S2 are heard. No murmurs gallops or rubs. LUNGS: Clear to auscultation bilaterally. No wheeze, rhonchi or rales. No use of accessory muscles on inspiration or expiration. ABDOMEN: Soft, nontender. Nondistended. Bowel sounds heard in all 4 quadrants. No organomegaly or masses. Negative rebound, negative guarding EXTREMITIES: No edema, pulses are equal bilaterally. No cyanosis or clubbing NEUROLOGY: Mood and affect appear appropriate. Cranial nerves II through XII grossly intact. Muscle strength 5/5 in upper and lower extremities bilaterally. Deep tendon reflexes are 2+ in upper and lower extremities bilaterally. Results Labs CBC & Chem 7: 07/16/18 05:55 07/16/18 05:55 Imaging Impressions Head MRI 07/15/18 00:14 CONCLUSION: 1. No intracranial abnormality. The cause of the patient's left thigh blurred vision is not seen. 2. Sinus disease. Orbit MRI 07/15/18 00:17 CONCLUSION: 1. The orbits appear normal. 2. Sinus disease. Caprini VTE Risk Assessment Caprini VTE Risk Assessment: No/Low Risk (score <= 1) Caprini Risk Assessment Model: Point Value = 1 Point Value = 2 Point Value = 3 Point Value = 5 Age 41-60 Minor surgery BMI > 25 kg/m2 Swollen legs Varicose veins or History of unexplained or recurrent spontaneous Oral contraceptives or hormone replacement Sepsis (< 1 month) Serious lung disease, including pneumonia (< 1 month) Abnormal pulmonary function Acute myocardial infarction Congestive heart failure (< 1 month) History of inflammatory bowel disease Medical patient at bed rest Age 61-74 Arthroscopic surgery Major open surgery (> 45 min) Laparoscopic surgery (> 45 min) Malignancy Confined to bed (> 72 hours) Immobilizing plaster cast Central venous access Age >= 75 History of VTE Family history of VTE Factor V Leiden Prothrombin [id number] Lupus anticoagulant Anticardiolipin antibodies Elevated serum homocysteine Heparin-induced thrombocytopenia Other congenital or acquired thrombophilia Stroke (< 1 month) Elective arthroplasty Hip, pelvis, or leg fracture Acute spinal cord injury (< 1 month) Prophylaxis Regimen: Total Risk Factor Score Risk Level Prophylaxis Regimen 0-1 Low Early ambulation 2 Moderate Order ONE of the following: *Sequential Compression Device (SCD) *Heparin 5000 units SQ BID 3-4 Higher Order ONE of the following medications: *Heparin 5000 units SQ TID *Enoxaparin/Lovenox 40 mg SQ daily (WT < 150 kg, CrCl > 30 mL/min) *Enoxaparin/Lovenox 30 mg SQ daily (WT < 150 kg, CrCl > 10-29 mL/min) *Enoxaparin/Lovenox 30 mg SQ BID (WT < 150 kg, CrCl > 30 mL/min) AND/OR *Sequential Compression Device (SCD) 5 or more Highest Order ONE of the following medications: *Heparin 5000 units SQ TID (Preferred with Epidurals) *Enoxaparin/Lovenox 40 mg SQ daily (WT < 150 kg, CrCl > 30 mL/min) *Enoxaparin/Lovenox 30 mg SQ daily (WT < 150 kg, CrCl > 10-29 mL/min) *Enoxaparin/Lovenox 30 mg SQ BID (WT < 150 kg, CrCl > 30 mL/min) AND *Sequential Compression Device (SCD) Assessment and Plan Plan Optic neuritis/myositis with black spot in vision and changes in visual acuity MRI was performed of the head and orbits without any acute abnormality Neurologist was consulted by ER physician who recommended admission with IV Solu-Medrol Continue Solu-Medrol 250 mg IV every 4 times daily Awaiting neurologist for further recommendations Hypothyroidism TSH was 74 Home medications were continued Patient is followed by outpatient high lift operator DVT prevention Subcutaneous Lovenox
[2018-07-15] MEDS ORDERED: Levothyroxine 100 MCG Tablet PO ONE (10:15)
[2018-07-15] MEDS: Metoprolol Tartrate 25 MG Tablet PO SCH ×2 (12:32→22:14)
--- NOTE | 2018-07-15 21:21 | MB ---
cc: Saeed Copeland MD, PhD DATE: 07/15/2018 REASON FOR CONSULTATION: Optic neuritis. HISTORY OF PRESENT ILLNESS: Ms. Phillips is a very pleasant 32-year-old woman who about a week ago began to notice blurred vision in the left eye. She then developed pain in the left eye and on Thursday woke up and noted she had a black spot in the left eye in the inferior outer aspect. She saw an pile header who thought she had inflammation of the optic disc, referred her to the ER for IV steroids. She relates that she had an episode a while ago of ocular myositis in the left eye where she had pain to move the eye, but is very different from the current symptoms. She has a history in the past of intermittent weakness of the legs, numbness and tingling, as well as a tight sensation in the mid thoracic area coming and going. She has a neurogenic bladder as well as a bladder stimulator in place. In the past, she has been evaluated for MS possibility including MRI of the brain, which has been negative. Her neurologic symptoms in the past have improved with steroid treatment. She has been started on IV Solu-Medrol here in the hospital, and the pain has resolved, but she still has the visual changes. PAST MEDICAL HISTORY: The patient has a history of celiac disease, hypothyroidism, von Willebrand disease, migraine. PHYSICAL EXAMINATION: VITAL SIGNS: Her blood pressure is 119/66, pulse is 64, respirations 20, temperature of 97 degrees. NEUROLOGIC: Higher cortical functions are normal. Cranial nerves: The pupils are equal and reactive. There is no [place] pupil. Visual hurt: She has a very slight defect in the left inferior quadrant for the left eye only. Extraocular movements are normal. There is no KARL. Other cranial nerves are normal. Motor exam is normal. Sensory exam intact. MRI of the brain is normal. MRI of the orbits are normal. LABORATORY DATA: Her white count of 6700, hemoglobin 13.7, hematocrit 41.4%, platelet count is 208,000. INR 1, PT 10.1, APTT 31.4. Von Willebrand antigen 37%. Factor VIII activity 33%. Sodium is 138, potassium 3.7, chloride 104, CO2 is 28.5, BUN is 5, creatinine 1.2, GFR 64, calcium 8.8, glucose is 80. TSH is 74. B12 is 569. CURRENT MEDICATIONS: 1. Tylenol. 2. Buspar. 3. Lovenox 40 mg subcutaneous daily. 4. Lamictal 100 mg daily. 5. Synthroid 300 mcg daily on Thursday, Thursday, Thursday, , Thursday, Thursday; 200 mcg daily on Thursday. 6. Solu-Medrol 250 mg IV every 6 hours, which was started this admission. 7. Metoprolol 25 mg b.i.d. 8. Zofran p.r.n. 9. Protonix 40 mg daily. IMPRESSION: Left optic neuritis. With her history, it is very suggestive of the possibility of multiple sclerosis. However, there are no plaques on the MRI brain. RECOMMENDATIONS: Continue IV Solu-Medrol at the current dose for 3-5 days. We would also check an antiaquaporin antibody to rule out neuromyelitis optica. Also, consider lumbar puncture but have to stop the Lovenox first for the possibility of multiple sclerosis. ADDENDUM: Because of the patient's von Willbrand disease, will hold lumbar puncture due to the increased risk of hemorrhage with this condition. Saeed Copeland MD, PhD SIMON/paul , 08:53 PM , 09:00 PM
[2018-07-15] MEDS: lamoTRIgine 100 MG Tablet PO SCH (22:14)
[2018-07-16 06:24] LABS: Potassium 4.1 meq/L (3.5-5.1)
[2018-07-16] MEDS: Levothyroxine 100 MCG Tablet PO SCH (06:25)
[2018-07-16 06:26] LABS: Calcium 8.3 mg/dL (8.5-10.1)
[2018-07-16 06:27] LABS: Carbon Dioxide 24.4 meq/L (21.0-32.0)
[2018-07-16 06:38] LABS: Baso % (Auto) 0.1 % (0.0-2.0); Eos % (Auto) 0.1 % (0.0-4.0); Hematocrit 38.9 % (35.0-46.0); Hemoglobin 13.2 gm/dL (11.6-15.3); Lymph # (Auto) 1.1 th/mm3 (1.0-4.8); Mean Corpuscular Hemoglobin 28.2 pg (27.0-34.0); Mean Platelet Volume 9.6 fL (7.0-11.0); Mono # (Auto) 0.2 th/mm3 (0.0-0.9); Mono % (Auto) 1.1 % (0.0-8.0); Neut # (Auto) 12.9 th/mm3 (1.8-7.7); Neut % (Auto) 90.7 % (16.0-70.0); Platelet Count 247 th/mm3 (150-450); Red Blood Count 4.68 mil/mm3 (4.00-5.30); Red Cell Distribution Width 13.6 % (11.6-17.2); White Blood Count 14.2 th/mm3 (4.0-11.0)
[2018-07-16] MEDS: MethylPREDNISolone Sod Suc Inj 250 MG in Sodium Chlor 0.9% Inj 100 ML IV.SIG SCH ×4 (08:51→21:54)
[2018-07-16] MEDS: Enoxaparin Inj 40 MG/0.4 ML Syringe SQ SCH ×2 (08:52→08:55)
[2018-07-16] MEDS: Metoprolol Tartrate 25 MG Tablet PO SCH ×2 (08:52→21:54)
--- NOTE | 2018-07-16 10:11 | P.PNIM ---
Subjective Interval history: 32-year-old female who is seen examined today for follow-up on optic neuritis. Patient states that the pain in her eye has improved significantly since starting on the patient is undergoing neurological management. Vital signs are stable. Patient remains afebrile. Physical Exam Vital signs: Last Vital Signs Temp 97.8 F 07/16/18 08:00 Pulse 76 07/16/18 08:51 Resp 16 07/16/18 08:00 BP 130/62 07/16/18 08:00 Pulse Ox 92 L 07/16/18 08:00 Intake & Output 07/14/18 07/15/18 07/16/18 07/17/18 06:59 06:59 06:59 06:59 Intake Total 104 / 104 416 / 416 Balance 104 / 104 416 / 416 Weight 149 kg 149.9 kg Narrative: GENERAL: Well-developed, morbidly obese with BMI 53, in no acute distress. alert and orientated HEENT: Head is normocephalic without any lesions or masses noted. Facial features are symmetric. Eyes: Extraocular muscles are intact. Conjunctivae were clear. NECK: Supple without any masses. Trachea midline no deviation. No JVD, CARDIAC: Regular rhythm, regular rate. S1/S2 are heard. No murmurs gallops or rubs. LUNGS: Clear to auscultation bilaterally. No wheeze, rhonchi or rales. No use of accessory muscles on inspiration or expiration. ABDOMEN: Soft, nontender. Nondistended. Bowel sounds heard in all 4 quadrants. No organomegaly or masses. Negative rebound, negative guarding EXTREMITIES: No edema, pulses are equal bilaterally. No cyanosis or clubbing NEUROLOGY: Mood and affect appear appropriate. Cranial nerves II through XII grossly intact. Moving all extremities, speech is clear Results Labs CBC & Chem 7: 07/16/18 05:55 07/16/18 05:55 Assessment and Plan Plan Optic neuritis/myositis with black spot in vision and changes in visual acuity MRI was performed of the head and orbits without any acute abnormality Neurologist was consulted by ER physician who recommended admission with IV Solu-Medrol Continue Solu-Medrol 250 mg IV every 4 times daily for 3-5 days per neurologist Neurologist evaluated patient and recommended at least 3-5 days of Solu- Medrol. Also indicated possible need for lumbar puncture to evaluate for MS, however since patient does have von Willebrand's disorder, deferring lumbar puncture until Dr. Copeland discusses with edger operator Hypothyroidism TSH was 74 Home medications were continued Patient is followed by outpatient b2b sales consultant DVT prevention Subcutaneous Lovenox Progress Note: Quality VTE Deep Vein Thrombosis/Pulmonary Embolism Present on Admission: No
[2018-07-16] MEDS: lamoTRIgine 100 MG Tablet PO SCH (21:54)
[2018-07-17] MEDS: Levothyroxine 100 MCG Tablet PO SCH (06:19)
[2018-07-17] MEDS: MethylPREDNISolone Sod Suc Inj 250 MG in Sodium Chlor 0.9% Inj 100 ML IV.SIG SCH ×3 (08:19→17:36)
[2018-07-17] MEDS: Enoxaparin Inj 40 MG/0.4 ML Syringe SQ SCH (08:19)
[2018-07-17] MEDS ORDERED: Metoprolol Tartrate 25 MG Tablet PO SCH (08:37)
--- NOTE | 2018-07-17 08:58 | P.PNIM ---
Subjective Interval history: 32-year-old female who is seen examined today for follow-up on optic neuritis. Patient is lying in bed comfortable. Patient denies any new complaints. Still states he is having pain in the left eye. Spot in her vision is still there and is not recovered. Vital signs are stable. Patient remains afebrile. Physical Exam Vital signs: Last Vital Signs Temp 97.8 F 07/17/18 08:00 Pulse 51 L 07/17/18 08:00 Resp 18 07/17/18 08:00 BP 125/78 07/17/18 08:00 Pulse Ox 95 07/17/18 08:00 Intake & Output 07/15/18 07/16/18 07/17/18 07/18/18 06:59 06:59 06:59 06:59 Intake Total 104 / 104 416 / 416 1616 / 1616 Balance 104 / 104 416 / 416 1616 / 1616 Weight 149 kg 149.9 kg Narrative: GENERAL: Well-developed, morbidly obese with BMI 53, in no acute distress. alert and orientated HEENT: Head is normocephalic without any lesions or masses noted. Facial features are symmetric. Eyes: Extraocular muscles are intact. Conjunctivae were clear. NECK: Supple without any masses. Trachea midline no deviation. No JVD, CARDIAC: Regular rhythm, regular rate. S1/S2 are heard. No murmurs gallops or rubs. LUNGS: Clear to auscultation bilaterally. No wheeze, rhonchi or rales. No use of accessory muscles on inspiration or expiration. ABDOMEN: Soft, nontender. Nondistended. Bowel sounds heard in all 4 quadrants. No organomegaly or masses. Negative rebound, negative guarding EXTREMITIES: No edema, pulses are equal bilaterally. No cyanosis or clubbing NEUROLOGY: Mood and affect appear appropriate. Cranial nerves II through XII grossly intact. Moving all extremities, speech is clear Results Labs CBC & Chem 7: 07/16/18 05:55 07/16/18 05:55 Assessment and Plan Plan Optic neuritis/myositis with black spot in vision and changes in visual acuity MRI was performed of the head and orbits without any acute abnormality Neurologist was consulted by ER physician who recommended admission with IV Solu-Medrol Continue Solu-Medrol 250 mg IV every 4 times daily for 3-5 days per neurologist Neurologist indicated that the patient is not a candidate for LP puncture to evaluate for multiple sclerosis due to her von Willebrand's condition. He did speak with artificial log machine operator who states that she is at increased risk for bleeding Hypothyroidism TSH was 74 Home medications were continued Patient is followed by outpatient rod hanger DVT prevention Subcutaneous Lovenox Progress Note: Quality VTE Deep Vein Thrombosis/Pulmonary Embolism Present on Admission: No
[2018-07-17 13:11] VITALS: O2SAT 96
--- NOTE | 2018-07-17 16:53 | P.PNNEU ---
Subjective Subjective Comments: Pt reports that her left eye pain is better but still with the small field cut in left eye. She feels the heaviness she had IN LE is better. Blood glucose is starting to increase. Active Medications: Active Medications Acetaminophen (Tylenol) 650 mg PO Q4H PRN PRN Reason: Temp > 100.4 Last Admin: 07/15/18 22:21 Dose: 650 mg Buspirone HCl (Buspar) 15 mg PO BID PRN PRN Reason: ANXIETY/INSOMNIA Last Admin: 07/16/18 23:32 Dose: 15 mg Methylprednisolone Sodium Succinate 250 mg/ Sodium Chloride 104 mls @ 200 mls/ hr IV.SIG QID [facility] Stop: 07/17/18 18:32 Last Infusion: 07/17/18 13:28 Dose: Infused Lamotrigine (Lamictal) 100 mg PO HS [facility] Last Admin: 07/16/18 21:54 Dose: 100 mg Levothyroxine Sodium (Synthroid) 200 mcg PO Rollins [facility] Levothyroxine Sodium (Synthroid) 300 mcg PO MoTuWeThFrSa [facility] Last Admin: 07/17/18 06:19 Dose: 300 mcg Metoprolol Tartrate (Lopressor) 12.5 mg PO BID [facility] Last Admin: 07/17/18 09:25 Dose: Not Given Miscellaneous (Pill Splitter) 1 each [facility] Ondansetron HCl (Zofran Inj) 4 mg IV.PUSH Q6H PRN PRN Reason: NAUSEA OR VOMITING Pantoprazole Sodium (Protonix) 40 mg PO DAILY [facility] Last Admin: 07/17/18 08:20 Dose: 40 mg Sodium Chloride (Ns Flush) 2 ml IV.FLUSH BID [facility] Last Admin: 07/17/18 08:20 Dose: 2 ml Sodium Chloride (Ns Flush) 2 ml IV.FLUSH PRN PRN PRN Reason: FLUSH AFTER USING IV ACCESS Allergies/Adverse Reactions: Allergies Allergy/AdvReac Type Severity Reaction Status Date / Time gluten Allergy Severe Gastrointestinal Verified 07/15/18 00:30 Upset povidone-iodine Allergy Severe BLISTER Verified 07/15/18 00:30 soap Allergy Severe BLISTER Verified 07/15/18 00:30 hydrocodone Allergy Unknown HIVES Verified 07/15/18 00:30 Sulfa (Sulfonamide Allergy Unknown VOMITING Verified 07/15/18 00:30 Antibiotics) sumatriptan Allergy Unknown RESP Verified 07/15/18 00:30 zolpidem Allergy Unknown VOMITING Verified 07/15/18 00:30 Physical Exam Vital signs: Vital Signs 07/16/18 20:00 07/17/18 01:02 07/17/18 08:00 Temperature 98.0 F 98.3 F 97.8 F Pulse Rate 66 59 L 51 L Respiratory Rate 18 20 18 Blood Pressure 122/68 127/67 125/78 Pulse Oximetry 95 96 95 07/17/18 12:00 Temperature 98 F Pulse Rate 62 Respiratory Rate 18 Blood Pressure 121/84 Pulse Oximetry 96 Intake & Output 07/16/18 07/17/18 07/17/18 18:59 06:59 18:59 Intake Total 1512 / 1512 104 / 104 208 / 208 Balance 1512 / 1512 104 / 104 208 / 208 Intake: IV 312 / 312 104 / 104 208 / 208 SoluMEDROL Inj 250 MG In NS Inj 312 / 312 104 / 104 208 / 208 100 ML @ 200 mls/hr IV.SIG QID ENRIQUE Rx#:[id number] Oral 1200 / 1200 Other: # Voids 6 # Bowel Movements 0 - Routine Neurological Exam alert, speech normal CN--PERRL EOM intact. Still with small visual defect left eye in inferior temporal field. Motor 5/5 BUE and BLE Objective Laboratory Results - last 24 hr 07/17/18 12:59 POC Glucose 180 H Review/Management - Review/Management Plan: would stop solumedrol after 12 th dose today since glucose is increasing. Would not give prednisone taper Ok from neuro standpoint to dc after 12 th solumedrol dose and follow up with me in office in 2 weeks
--- NOTE | 2018-07-17 16:58 | P.DS ---
DS: Providers Date of admission: 07/15/18 03:41 Primary care physician: Wally Phillips Consults: 07/15/18 03:41 Consult to Neurology Routine Consulting Provider: Saeed Copeland Reason for Consultation: possible optic neuritis Notified:: Service Spoke with:: Caryn Date Notified:: 07/15/18 Time Notified:: 03:51 Ordering Provider: PIPER Brief History from admission: 32-year-old female with known history of celiac disease, hypothyroidism, migraine cephalgia, atonic bladder, von Willebrand's disease who presented to the hospital at the request of her co director for IV steroids. Patient indicates that 2 weeks ago she started noticing visual problems with her left eye with blurriness of her left eye and pain. She did go to her co director to get a dilated eye exam and notified her that she had some inflammation of her optic nerve and that they are going to keep an eye on it. Patient states that her eye pain did not get any better, visual acuity did not improve and she developed a black spot in the middle of her vision. She went to her co director again emergent emmanuel and had another evaluation and they told her to go to the hospital for IV steroids. Patient indicates that she go to the emergency department and evaluation for the optic neuritis or optic myositis was to have an MRI performed. However the MRI was not available that can do her study because of her bladder stimulator. Arrangements were made for the patient to come to [place] to have an MRI performed and IV steroids. MRI was done which was unremarkable. Patient has started IV steroids and she indicates that the pain around her eye is much improved, however she still having visual difficulties with acuity as well as black spot in her vision. Otherwise patient denies any other symptoms. DS: Diagnosis Discharge Diagnosis (1) Optic neuritis: Status: Acute DS: Summary 32-year-old female who originally presented to hospital for evaluation of left optic neuritis. Patient did have workup done with MRIs of the orbit and of the head which did not indicate any acute abnormality. Neurology was consulted who recommended the patient be admitted to hospital with Solu-Medrol 1000 mg daily for 3 days. Patient did undergo treatment on a daily basis. She states that the pain did improve. However she still had the small black spot in her vision. Neurology followed the patient during her stay in the hospital after the third day of IV steroids patient started having increase in her glucose. At that time the neurologist recommend the patient be discontinued off of steroids. Patient may be discharged home without any tapering dose steroids. Patient clinically stable this time. We will plan discharge accordingly. Time Spent with Patient Total time spent providing and/or coordinating discharge services: Quality: VTE Deep Vein Thrombosis/Pulmonary Embolism Present on Admission: No Results Labs on day of discharge: Labs from last 24 hours 07/17/18 12:59 POC Glucose 180 H Impressions ITS Impressions Head MRI 07/15/18 00:14 CONCLUSION: 1. No intracranial abnormality. The cause of the patient's left thigh blurred vision is not seen. 2. Sinus disease. Orbit MRI 07/15/18 00:17 CONCLUSION: 1. The orbits appear normal. 2. Sinus disease. Discharge Plan Discharge Disposition Patient Disposition: Discharge Home Discharge Condition Condition: Stable Discharge Order Discharge Orders: Discharge Order (Routine); Ordered 07/17/18 Ordered By: Rodriguez Sorensen Discharge Details Anticipated Discharge Date: 07/17/18 Discharge Comment: Ok to discharge home after 12 dose of solumedrol given at 1800 Physicians Team ED Provider: Sadia Gallegos Primary Care Provider: Wally Phillips Attending Provider: Justin De La Garza Other Providers: Saeed Copeland Rxs /Orders / Referrals /Forms Prescriptions: New metoprolol tartrate 25 mg Tablet 12.5 mg PO BID Qty: 15 RF: 0 Continue levothyroxine 200 mcg Tablet 200 mcg PO DAILY RF: 0 prochlorperazine [Compazine] 25 mg Suppository 25 mg OK Q12H PRN (Reason: MIGRAINE) RF: 0 indomethacin [Indocin] 25 mg/5 mL Suspension 25 mg PO BID RF: 0 naratriptan [Amerge] 2.5 mg Tablet 2.5 mg PO Q4H PRN (Reason: MIGRAINE) RF: 0 ketorolac 30 mg/mL Solution 30 mg IM Q6H RF: 0 levothyroxine [Synthroid] 300 mcg Tablet 300 mcg PO DAILY RF: 0 cholecalciferol (vitamin D3) [Vitamin D3] 1,000 unit Tablet 1,000 unit PO DAILY RF: 0 buspirone 15 mg Tablet 15 mg PO BID RF: 0 oxycodone 5 mg Capsule 5 mg PO DAILY PRN (Reason: Pain) RF: 0 lamotrigine 100 mg Tablet 100 mg PO DAILY RF: 0 Discontinued metoprolol tartrate 25 mg Tablet 25 mg PO BID RF: 0 Referrals: Saeed Copeland MD, PhD [Physician] - See Instructions (follow up with Dr Copeland in 2 weeks Please call the physician's office to book ) Wally Phillips MD [Primary Care Provider] - See Instructions ( Please call the physician's office to book F/U APT) Status ED Status: Left Department Discharge Information Discharge Date/Time: 07/17/18 19:08
[2018-07-17 17:02] VITALS: BP 125/74; PULSE 66; RESP 19; TEMP 98
== END 2018-07-17 19:08 | disposition home or self-care (01) | DRG 123 ==
LOC: PHED 23:56 → PHEDA 07-15 03:41 → PH3 07-15 05:52
PROVIDERS: ADMIT Internal Medicine; ATTEND Internal Medicine
CPT/HCPCS: 70543; 70553; 80048; 80053; 81001; 82948; 82962; 84443; 84703; 85025; 85610; 85730; 90774; 90784; 96374; 99284; 99285; A9585; C8952; J1650; J2060; J2930